=== PATIENT | male | born 1940 | race Caucasian/White ===

== ENCOUNTER 2017-02-11 13:33 | Emergency (ER) | payer BC ==
[~2017-02-11] VITALS: Ht 170.2 cm; Wt 112.0 kg
[2017-02-11] MEDS ORDERED: FISH100049 PO (13:50)
[2017-02-11] MEDS ORDERED: INVO100T PO (13:50)
[2017-02-11] MEDS ORDERED: CLAR1CHW PO (13:50)
[2017-02-11] MEDS ORDERED: ASPI325T PO (13:50)
[2017-02-11] MEDS ORDERED: DOXA1TAB72 PO (13:50)
[2017-02-11] MEDS ORDERED: OMEP40CA2 PO (13:50)
[2017-02-11] MEDS ORDERED: NITR0.4D TD (13:50)
[2017-02-11] MEDS ORDERED: PARO-39 PO (13:50)
[2017-02-11] MEDS ORDERED: METF500T PO (13:50)
[2017-02-11] MEDS ORDERED: METO12TA PO (13:50)
[2017-02-11] MEDS ORDERED: LISI10TA4 PO (13:50)
[2017-02-11] MEDS ORDERED: ATOR40TA PO (13:50)
[2017-02-11] MEDS ORDERED: POTA10TA8 PO (13:50)
[2017-02-11] MEDS ORDERED: ALLO15TA GT (13:50)
[2017-02-11] MEDS ORDERED: INSUDET SC (13:51)
[2017-02-11] MEDS ORDERED: INSUH10VL SC (13:51)
[2017-02-11] MEDS ORDERED: ONDANSETRON 4MG/2ML VIAL (J2405) IV ONE (14:15)
[2017-02-11] MEDS ORDERED: GI COCKTAIL 50ML BTL(HYOSCYAMINE/MAALOX/LIDOCAINE VISCOUS)(1:3:1) PO ONE (14:15)
[2017-02-11] MEDS ORDERED: NS 500 ML IV ONE (14:15)
[2017-02-11 14:23] LABS: BASO % 0.4 % (0.0-1.0); EOS # 0.3 K/mm3 (0.0-0.50); EOS % 3.8 % (0.0-3.0); LARGE UNSTAINED CELL # 0.1 K/mm3 (0.0-0.4); LARGE UNSTAINED CELL % 1.4 % (0.0-4.0); LYMPH # 1.4 K/mm3 (1.5-4.5); LYMPH % 14.9 % (24.0-44.0); MEAN CORPUSCULAR HGB CONC 34.7 g/dl (32.0-36.5); MEAN CORPUSCULAR VOLUME 89.3 fl (80.0-96.0); MONO # 0.5 K/mm3 (0.0-0.8); MONO % 5.6 % (0.0-5.0); NEUTROPHILS # 6.4 K/mm3 (1.8-7.7); PLATELET COUNT, AUTOMATED 119 k/mm3 (150-450); RED CELL DISTRIBUTION WIDTH 14.7 % (11.5-14.5); WHITE BLOOD COUNT 8.6 K/mm3 (4.0-10.0)
[2017-02-11 14:29] LABS: INR 1.06
[2017-02-11] MEDS ORDERED: MORPHINE 4 MG/ML 1ML SYRINGE IV ONE (14:30)
[2017-02-11 15:01] LABS: ALKALINE PHOSPHATASE 86 U/L (45-117); ALT/SGPT 50 U/L (12-78); ANION GAP 5 MEQ/L (8-16); AST/SGOT 29 U/L (15-37); BILIRUBIN,TOTAL 0.4 MG/DL (0.2-1.0); BLOOD UREA NITROGEN 31 MG/DL (7-18); CALCIUM LEVEL 9.5 MG/DL (8.8-10.2); CARBON DIOXIDE LEVEL 25 MEQ/L (21-32); CHLORIDE LEVEL 106 MEQ/L (98-107); GLOMERULAR FILTRATION RATE 57.4 (>42); GLUCOSE, FASTING 127 MG/DL (83-110); SODIUM LEVEL 136 MEQ/L (136-145)
[2017-02-11 15:02] LABS: ALBUMIN 3.7 GM/DL (3.2-5.2); ALBUMIN/GLOBULIN RATIO 0.97 (1.00-1.93); BILIRUBIN,DIRECT < 0.1 MG/DL (0.0-0.2); FREE T4 0.92 NG/DL (0.76-1.46); TOTAL PROTEIN 7.5 GM/DL (6.4-8.2)
[2017-02-11] MEDS: MORPHINE 2 MG/ML 1ML SYRINGE IV PRN ×3 (15:08→15:29)
[2017-02-11] MEDS ORDERED: HEPARIN DRIP 25,000 UNITS in APPROPRIATE DILUENT 1 EA IV STA (15:14)
[2017-02-11] MEDS ORDERED: HEPARIN SOD (PORCINE) 5000 UNITS/ML VIAL IV ONE (15:15)
[2017-02-11] MEDS ORDERED: HEPARIN 25,000 UNITS/250 ML D5W BAG (100 UNITS/ML) As Ordered ONE (15:22)
[2017-02-11] MEDS ORDERED: HEPARIN DRIP 25,000 UNITS in APPROPRIATE DILUENT 1 EA IV ONE (15:30)
[2017-02-11 16:07] VITALS: BP 160/72
--- NOTE | 2017-02-11 16:36 | REP ---
PORTABLE CHEST, SINGLE VIEW: There is no evidence of acute infiltrate. No pleural effusion is seen. The heart is normal in size. The mediastinal silhouette is unremarkable. The visualized osseous structures are intact. IMPRESSION: No acute pulmonary disease. Signed by Mayank Capps MD 02/12/2017 07:40 P
--- NOTE | 2017-02-12 16:10 | ECGEPIP ---
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
--- NOTE | 2017-02-12 16:16 | ECGEPIP ---
Stationary ECG Study [facility] - ED Test Date: 2017-02-11 Pat Name: HARDY WILLIAMSON Department: Room: - Gender: M Vb Developer: patricia : 1940 Requested By: Sherley Davis Order Number: [id number] Reading MD: Patricia Long Measurements Intervals [place] Rate: 60 P: 48 ND: 217 QRS: 24 QRSD: 117 T: 31 QT: 412 QTc: 412 Interpretive Statements SINUS RHYTHM WITH FIRST DEGREE AV BLOCK MODERATE INTRAVENTRICULAR CONDUCTION DELAY NONSPECIFIC T-WAVE ABNORMALITY SIMILAR 02/11/17 15:01 Electronically Signed On 02-12-2017 16:15:59 EDT by Patricia Long
== END 2017-02-11 16:10 | disposition short-term general hospital (02) ==
LOC: M ED 14:14
DX: R07.9 Chest pain, unspecified (principal); I11.0 Hypertensive heart disease with heart failure; I25.10 Atherosclerotic heart disease of native coronary artery without angina pectoris; E11.9 Type 2 diabetes mellitus without complications; E78.5 Hyperlipidemia, unspecified; F41.9 Anxiety disorder, unspecified; Z95.5 Presence of coronary angioplasty implant and graft; Z79.4 Long term (current) use of insulin; Z79.899 Other long term (current) drug therapy; Z91.041 Radiographic dye allergy status; Z79.82 Long term (current) use of aspirin
CPT/HCPCS: 71010; 80048; 80076; 82550; 82553; 83690; 84439; 84443; 85025; 85610; 85730; 93005; 93041; 94760; 96374; 96375; 96376; 99285; J2405

== ENCOUNTER 2018-03-21 18:57 | Inpatient (IN) | payer BC, MEDICARE ==
[2018-03-21 19:25] LABS: BASO % 0.3 % (0.0-1.0); EOS # 0.3 10^3/uL (0.0-0.50); EOS % 4.4 % (0.0-3.0); HEMATOCRIT 40.7 % (42.0-52.0); IMMATURE GRANULOCYTE % 0.9 % (0-3.0); LYMPH # 1.4 10^3/uL (1.5-4.5); MEAN CORPUSCULAR HEMOGLOBIN 30.5 pg (27.0-33.0); MEAN CORPUSCULAR HGB CONC 34.4 g/dl (32.0-36.5); MEAN CORPUSCULAR VOLUME 88.7 fl (80.0-96.0); MONO # 0.7 10^3/uL (0.0-0.8); MONO % 10.4 % (0.0-5.0); NEUTROPHILS # 4.5 10^3/uL (1.8-7.7); PLATELET COUNT, AUTOMATED 114 10^3/uL (150-450); RED BLOOD COUNT 4.59 10^6/uL (4.30-6.10); RED CELL DISTRIBUTION WIDTH 14.4 % (11.5-14.5)
[2018-03-21 19:33] LABS: INR 1.07
[2018-03-21] MEDS: METOCLOPRAMIDE INJ 10MG/2ML VIAL (J2765) IV (19:34)
[2018-03-21] MEDS: NS 1,000 ML IV (19:34)
[2018-03-21 19:44] LABS: ALBUMIN 3.3 GM/DL (3.2-5.2); ALBUMIN/GLOBULIN RATIO 0.87 (1.00-1.93); ALKALINE PHOSPHATASE 77 U/L (45-117); ALT/SGPT 51 U/L (12-78); ANION GAP 9 MEQ/L (8-16); AST/SGOT 32 U/L (7-37); BILIRUBIN,DIRECT 0.1 MG/DL (0.0-0.2); BILIRUBIN,TOTAL 0.4 MG/DL (0.2-1.0); BLOOD UREA NITROGEN 30 MG/DL (7-18); CALCIUM LEVEL 8.7 MG/DL (8.8-10.2); CARBON DIOXIDE LEVEL 24 MEQ/L (21-32); CHLORIDE LEVEL 110 MEQ/L (98-107); CPK CREATINE PHOSPHOKINASE 190 U/L (39-308); CREATININE FOR GFR 1.44 MG/DL (0.70-1.30); GLOMERULAR FILTRATION RATE 50.9 (>42); GLUCOSE, FASTING 184 MG/DL (70-100); POTASSIUM SERUM 4.7 MEQ/L (3.5-5.1); SODIUM LEVEL 143 MEQ/L (136-145); TOTAL PROTEIN 7.1 GM/DL (6.4-8.2); TROPONIN I < 0.02 NG/ML (< 0.10)
[2018-03-21 19:45] LABS: ETHYL ALCOHOL (ETHANOL) < 0.003 % (0.000-0.010); MB/CK RELATIVE INDEX 2.63 (< OR =4)
[2018-03-21] MEDS: LORazepam 2 MG/ML VIAL (J2060) IV (20:48)
[2018-03-21 20:52] LABS: AMPHETAMINES LEVEL URINE NEGATIVE (NEGATIVE); BARBITURATES URINE NEGATIVE (NEGATIVE); BENZODIAZEPINES URINE NEGATIVE (NEGATIVE); CANNABINOIDS URINE NEGATIVE (NEGATIVE); COCAINE METABOLITE URINE NEGATIVE (NEGATIVE); METHADONE URINE NEGATIVE (NEGATIVE); OPIATES URINE NEGATIVE (NEGATIVE); PHENCYCLIDINE URINE NEGATIVE (NEGATIVE)
[2018-03-21] MEDS: HumaLOG INSULIN (NovoLOG) PER UNIT SC (21:00)
[2018-03-21] MEDS: CLOPIDOGREL 75 MG TAB PO (21:15)
[2018-03-21] MEDS ORDERED: ACETAMINOPHEN TAB 650MG DOSE (2X325MG) PO (21:45)
[2018-03-21] MEDS ORDERED: DEXTROSE 50% 50 ML SYRINGE IV (22:00)
[2018-03-21] MEDS ORDERED: GLUCAGON FOR INJ 1 MG VIAL (J1610) SC (22:00)
[2018-03-21] MEDS ORDERED: GLUCOSE 4 GM CHEW TABLET PO (22:00)
[2018-03-22] MEDS: LEVEMIR (INSULIN DETEMIR) 1 UNITS/0.01ML SC ×3 (00:12→21:00)
[2018-03-22 00:16] LABS: BEDSIDE GLUCOSE 142 MG/DL (83-110)
[2018-03-22] MEDS: METOPROLOL TART 25 MG TABLET PO ×3 (00:59→21:26)
[2018-03-22] MEDS: OMEPRAZOLE 20 MG CAP PO ×3 (00:59→21:27)
[2018-03-22] MEDS: HEPARIN SOD (PORCINE) 5000 UNITS/ML VIAL SC ×4 (01:00→21:26)
[2018-03-22] MEDS: NS 1,000 ML IV (01:00)
[2018-03-22 05:47] LABS: ANION GAP 7 MEQ/L (8-16); BLOOD UREA NITROGEN 25 MG/DL (7-18); CALCIUM LEVEL 8.7 MG/DL (8.8-10.2); CARBON DIOXIDE LEVEL 26 MEQ/L (21-32); CHLORIDE LEVEL 111 MEQ/L (98-107); CREATININE FOR GFR 1.27 MG/DL (0.70-1.30); GLOMERULAR FILTRATION RATE 58.9 (>42); GLUCOSE, FASTING 199 MG/DL (70-100); POTASSIUM SERUM 4.5 MEQ/L (3.5-5.1); SODIUM LEVEL 144 MEQ/L (136-145)
[2018-03-22] MEDS: ATORVASTATIN 20 MG TAB PO (08:45)
[2018-03-22] MEDS: HumaLOG INSULIN (NovoLOG) PER UNIT SC ×4 (08:45→21:00)
[2018-03-22] MEDS: DOXAZOSIN MESYLATE 4 MG TAB PO (08:46)
[2018-03-22] MEDS: PARoxetine 10MG TABLET PO (08:46)
[2018-03-22] MEDS: LISINOPRIL 10 MG TAB PO (08:46)
[2018-03-22] MEDS: CLOPIDOGREL 75 MG TAB PO (08:47)
[2018-03-22] MEDS: ALLOPURINOL 300 MG TAB PO (08:47)
[2018-03-22] MEDS: PREVNAR 13 VACCINE SYRINGE (CPT CODE:90670) IM (08:48)
[2018-03-22] MEDS ORDERED: LATANOPROST 0.005% OPHTH SOLN 2.5 ML OU (09:00)
[2018-03-22] MEDS ORDERED: ASPIRIN 325 MG TAB PO (09:00)
[2018-03-22 11:34] LABS: BEDSIDE GLUCOSE 260 MG/DL (83-110)
[2018-03-22 17:10] LABS: BEDSIDE GLUCOSE 197 MG/DL (83-110)
[2018-03-22 20:49] LABS: BEDSIDE GLUCOSE 270 MG/DL (83-110)
[2018-03-22] MEDS: LATANOPROST 0.005% OPHTH SOLN 2.5 ML OU (21:32)
[2018-03-23 05:25] LABS: HEMATOCRIT 40.1 % (42.0-52.0); HEMOGLOBIN 13.6 g/dl (13.5-17.5); MEAN CORPUSCULAR HEMOGLOBIN 29.7 pg (27.0-33.0); MEAN CORPUSCULAR HGB CONC 33.9 g/dl (32.0-36.5); MEAN CORPUSCULAR VOLUME 87.6 fl (80.0-96.0); PLATELET COUNT, AUTOMATED 102 10^3/uL (150-450); RED BLOOD COUNT 4.58 10^6/uL (4.30-6.10); RED CELL DISTRIBUTION WIDTH 14.4 % (11.5-14.5); WHITE BLOOD COUNT 6.9 10^3/uL (4.0-10.0)
[2018-03-23 05:41] LABS: ANION GAP 6 MEQ/L (8-16); BLOOD UREA NITROGEN 22 MG/DL (7-18); CALCIUM LEVEL 8.8 MG/DL (8.8-10.2); CARBON DIOXIDE LEVEL 28 MEQ/L (21-32); CHLORIDE LEVEL 109 MEQ/L (98-107); GLOMERULAR FILTRATION RATE > 60.0 (>42); GLUCOSE, FASTING 186 MG/DL (70-100); MAGNESIUM LEVEL 1.2 MG/DL (1.8-2.4); POTASSIUM SERUM 4.3 MEQ/L (3.5-5.1); SODIUM LEVEL 143 MEQ/L (136-145)
[2018-03-23] MEDS: HEPARIN SOD (PORCINE) 5000 UNITS/ML VIAL SC (05:49)
[2018-03-23] MEDS: LEVEMIR (INSULIN DETEMIR) 1 UNITS/0.01ML SC (09:42)
[2018-03-23] MEDS: HumaLOG INSULIN (NovoLOG) PER UNIT SC ×2 (09:42→12:05)
[2018-03-23] MEDS: ATORVASTATIN 20 MG TAB PO (09:43)
[2018-03-23] MEDS: OMEPRAZOLE 20 MG CAP PO (09:44)
[2018-03-23] MEDS: METOPROLOL TART 25 MG TABLET PO (09:44)
[2018-03-23] MEDS: LISINOPRIL 10 MG TAB PO (09:45)
[2018-03-23] MEDS: CLOPIDOGREL 75 MG TAB PO (09:45)
[2018-03-23] MEDS: DOXAZOSIN MESYLATE 4 MG TAB PO (09:46)
[2018-03-23] MEDS: PARoxetine 10MG TABLET PO (09:47)
[2018-03-23] MEDS: ALLOPURINOL 300 MG TAB PO (09:47)
[2018-03-23] MEDS: SLF 3 ML SYR IV (11:32)
[2018-03-23] MEDS: MAG SULF 1GM/100ML (MAG RUN) 1 GM in APPROPRIATE DILUENT 1 EA IV ×2 (11:32→12:48)
[2018-03-23 11:46] LABS: BEDSIDE GLUCOSE 241 MG/DL (83-110)
[2018-03-23] MEDS ORDERED: SLF 3 ML SYR IV (14:00)
== END 2018-03-23 14:40 | disposition home or self-care (01) | DRG 47 ==
LOC: M PCU 03-22 00:30 → M ED 18:57 → M ED INP 21:35
DX: G45.9 Transient cerebral ischemic attack, unspecified (principal); E11.22 Type 2 diabetes mellitus with diabetic chronic kidney disease; N18.3 Chronic kidney disease, stage 3 (moderate); R47.01 Aphasia; R20.0 Anesthesia of skin; I12.9 Hypertensive chronic kidney disease with stage 1 through stage 4 chronic kidney disease, or unspecified chronic kidney disease; E78.5 Hyperlipidemia, unspecified; I25.10 Atherosclerotic heart disease of native coronary artery without angina pectoris; G47.30 Sleep apnea, unspecified; F32.9 Major depressive disorder, single episode, unspecified; K21.9 Gastro-esophageal reflux disease without esophagitis; Z95.1 Presence of aortocoronary bypass graft; Z87.891 Personal history of nicotine dependence; Z79.82 Long term (current) use of aspirin; Z79.4 Long term (current) use of insulin; Z79.899 Other long term (current) drug therapy; Z91.041 Radiographic dye allergy status

== ENCOUNTER 2018-04-09 11:02 | Day surgery (SDC) | payer BC, MEDICARE ==
[~2018-04-09 11:02] MED LIST: LIDOCAINE 1% SDV INJ 30 ML VIAL As Ordered; LR 1,000 ML IV
[2018-04-09 12:33] LABS: BEDSIDE GLUCOSE 158 MG/DL (83-110)
[2018-04-09] MEDS: LIDOCAINE VISCOUS 2% SOLN 15ML UDC As Ordered (14:12)
[2018-04-09] MEDS ORDERED: PROPOFOL 200 MG/20 ML VIAL As Ordered (14:21)
[2018-04-09] MEDS ORDERED: MIDAZOLAM INJ 2 MG/2 ML VIAL (J2250) As Ordered (14:21)
[2018-04-09] MEDS ORDERED: fentaNYL 100 MCG/2 ML INJECTION (J3010) As Ordered (14:21)
== END 2018-04-09 16:11 | disposition home or self-care (01) ==
LOC: M SDC 11:02
DX: I63.9 Cerebral infarction, unspecified (principal); I25.10 Atherosclerotic heart disease of native coronary artery without angina pectoris; I25.2 Old myocardial infarction; I10 Essential (primary) hypertension; Z95.1 Presence of aortocoronary bypass graft; E78.00 Pure hypercholesterolemia, unspecified; E78.4 Other hyperlipidemia; G47.30 Sleep apnea, unspecified; Z87.891 Personal history of nicotine dependence; E11.9 Type 2 diabetes mellitus without complications; Z79.4 Long term (current) use of insulin; Z79.899 Other long term (current) drug therapy
CPT/HCPCS: 33282

== ENCOUNTER 2019-11-22 06:23 | Emergency (ER) | payer BC ==
[~2019-11-22] VITALS: Ht 172.7 cm; Wt 113.6 kg
[~2019-11-22 06:23] MED LIST changes: +ALLO300T2 GT; +ASPI-1 PO; +ATOR40TA75 PO; +CLAR1CHW2 PO; +CLOP75TA2 PO; +CYAN500T8 PO; +DOXA1TAB67 PO; +FISH100049 PO; +INSUDET SC; +INSUH10VL SC; +INSUHUMDS SC; +INVO100T PO; +LATA0.0013 OU; -LIDOCAINE 1% SDV INJ 30 ML VIAL As Ordered; +LISI10TA4 PO; -LR 1,000 ML IV; +MAGN400T2 PO; +MAGN64TASA PO; +METF500T13 PO; +METO1TAB87 PO; +NITR0.4D10 TD; +OMEP-358 PO; +OMEP40CA97 PO; +PARO10TA3 PO; +PARO20TA4 PO; +POTA10TA14 PO; +ZYLO300T6 PO
[2019-11-22] MEDS ORDERED: COMBIVENT RESPIMAT 100-20MCG INHALER 4GM INH ONE (07:00)
[2019-11-22] MEDS ORDERED: ANEC4CRE3 TOP (07:01)
[2019-11-22] MEDS ORDERED: MOXI1TAB PO (07:01)
[2019-11-22] MEDS ORDERED: PROAAER10 INH (07:01)
[2019-11-22] MEDS ORDERED: INVO100T PO (07:01)
[2019-11-22] MEDS ORDERED: CLAR5TAB PO (07:01)
[2019-11-22] MEDS ORDERED: CARB25TA18 PO (07:01)
[2019-11-22 07:21] LABS: EOS % 0.4 % (0.0-3.0); HEMATOCRIT 40.4 % (42.0-52.0); HEMOGLOBIN 13.2 g/dl (13.5-17.5); LYMPH # 0.6 10^3/uL (1.5-5.0); LYMPH % 9.3 % (24.0-44.0); MEAN CORPUSCULAR HEMOGLOBIN 28.8 pg (27.0-33.0); MEAN CORPUSCULAR HGB CONC 32.7 g/dl (32.0-36.5); MONO # 0.5 10^3/uL (0.0-0.8); MONO % 7.2 % (0.0-5.0); NEUTROPHILS # 5.6 10^3/uL (1.5-8.5); NEUTROPHILS % 82.7 % (36.0-66.0); PLATELET COUNT, AUTOMATED 106 10^3/uL (150-450); RED BLOOD COUNT 4.59 10^6/uL (4.30-6.10); WHITE BLOOD COUNT 6.8 10^3/uL (4.0-10.0)
[2019-11-22 07:30] LABS: INR 1.24; PROTHROMBIN TIME 15.3 SECONDS (11.8-14.0)
--- NOTE | 2019-11-22 07:41 | REPVR ---
PROCEDURE INFORMATION: Exam: US Duplex Lower Extremity Veins Exam date and time: 11/22/2019 7:32 AM Age: 79 years old Clinical indication: Pain; Leg, lower; Bilateral; Additional info: Bilat leg pain R/O dvt TECHNIQUE: Imaging protocol: Real-time duplex ultrasound of the Lower Extremities with 2-D canales scale, color Doppler flow and spectral waveform analysis with image documentation. Complete exam focused on the bilateral lower extremity veins. COMPARISON: No relevant prior studies available. FINDINGS: Right deep veins: Unremarkable. The common femoral, femoral, proximal profunda femoral and popliteal veins are patent without thrombus. Normal Doppler waveforms. Normal compressibility and/or augmentation response. Right superficial veins: Saphenofemoral junction is patent without thrombus. Left deep veins: Unremarkable. The common femoral, femoral, proximal profunda femoral and popliteal veins are patent without thrombus. Normal Doppler waveforms. Normal compressibility and/or augmentation response. Left superficial veins: Saphenofemoral junction is patent without thrombus. Soft tissues: Unremarkable. IMPRESSION: No acute findings. No evidence of deep vein thrombosis. Electronically signed by: Nando Moncada On 11/22/2019 07:40:45 AM
[2019-11-22 07:50] LABS: ALBUMIN 2.9 GM/DL (3.2-5.2); BILIRUBIN,DIRECT 0.2 MG/DL (0.0-0.2); BILIRUBIN,TOTAL 0.7 MG/DL (0.2-1.0); CALCIUM LEVEL 8.6 MG/DL (8.8-10.2); CK-MB VALUE MASS 1.6 NG/ML (<3.6); CREATININE FOR GFR 1.32 MG/DL (0.70-1.30); FREE T4 1.17 NG/DL (0.76-1.46); MB/CK RELATIVE INDEX 1.17 (< OR =4); POTASSIUM SERUM 4.6 MEQ/L (3.5-5.1); THYROID STIMULATING HORMONE 1.03 uIU/ML (0.358-3.740); TOTAL PROTEIN 6.6 GM/DL (6.4-8.2); TROPONIN I 0.03 NG/ML (< 0.10)
--- NOTE | 2019-11-22 08:14 | REP ---
Clinical: Chest pain . Comparison: 03/21/2018 . Findings: The mediastinum and cardiac silhouette are stable. Mild cardiomegaly, prior sternotomy/CABG and loop recorder noted. The lung rivera are clear without acute consolidation, effusion, or pneumothorax. Skeletal structures are intact. Impression: No acute cardiopulmonary process appreciated. Electronically Signed by Adama Koo MD 11/22/2019 08:06 A
[2019-11-22] MEDS ORDERED: ACETAMINOPHEN TAB 650MG DOSE (2X325MG) PO ONE (08:45)
--- NOTE | 2019-11-22 10:56 | REP ---
Clinical: Shortness of breath. Technique: Axial noncontrast images from the thoracic inlet to the upper abdomen with coronal and sagittal re-formations. Findings: Chronic age-related interstitial changes are appreciated. Extremely subtle areas of ground-glass opacity primarily noted in the left upper lobe/lingula right middle lobe mass and right lower lobe are nonspecific but may represent early bronchitis/pneumonia. No focal consolidation. No effusion. No pneumothorax. There is no significant adenopathy. Atherosclerotic changes to the thoracic aorta and coronary arteries noted without aortic aneurysm or cardiomegaly. No pericardial effusion. Surrounding musculoskeletal structures are intact. Limited upper abdomen demonstrates normal bilateral adrenal glands and right renal cyst. Impression: 1. Chronic-appearing interstitial changes and mild bronchiectasis. 2. Very subtle scattered early ground-glass opacities may represent bronchitis/early pneumonia. Electronically Signed by Adama Koo MD 11/22/2019 10:48 A
[2019-11-22] MEDS ORDERED: DOXYCYCLINE HYCLATE 100 MG TAB PO ONE (11:00)
[2019-11-22] MEDS ORDERED: DOXY100C37 PO (11:09)
[2019-11-22 11:42] VITALS: BP 142/67
--- NOTE | 2019-11-23 05:33 | ECGEPIP ---
[facility] - ED Test Date: 2019-11-22 Pat Name: HARDY WILLIAMSON Department: Room: - Gender: Male Director Business: geraldo : 1940 Requested By: NAHUN Contreras Order Number: [id number] Reading MD: Sean Basilio Measurements Intervals [place] Rate: 69 P: -13 IL: 194 QRS: 57 QRSD: 138 T: -14 QT: 452 QTc: 486 Interpretive Statements SINUS RHYTHM RIGHT BUNDLE BRANCH BLOCK SIMILAR TO 03/21/18 Electronically Signed on 11-23-2019 5:32:53 EDT by Sean Basilio
== END 2019-11-22 12:45 | disposition home or self-care (01) ==
LOC: M ED 06:23
DX: J18.9 Pneumonia, unspecified organism (principal); R50.9 Fever, unspecified; M79.606 Pain in leg, unspecified; E11.22 Type 2 diabetes mellitus with diabetic chronic kidney disease; I13.10 Hypertensive heart and chronic kidney disease without heart failure, with stage 1 through stage 4 chronic kidney disease, or unspecified chronic kidney disease; I25.10 Atherosclerotic heart disease of native coronary artery without angina pectoris; K21.9 Gastro-esophageal reflux disease without esophagitis; E78.5 Hyperlipidemia, unspecified; N18.9 Chronic kidney disease, unspecified; M54.9 Dorsalgia, unspecified; Z95.1 Presence of aortocoronary bypass graft; Z87.891 Personal history of nicotine dependence; Z91.041 Radiographic dye allergy status; Z79.899 Other long term (current) drug therapy; Z79.2 Long term (current) use of antibiotics; Z79.02 Long term (current) use of antithrombotics/antiplatelets; Z79.4 Long term (current) use of insulin
CPT/HCPCS: 71045; 71250; 80048; 80076; 81001; 82550; 82553; 83880; 84439; 84443; 84484; 85025; 85610; 85730; 87040; 87086; 87486; 87581; 87633; 87798; 93005; 93041; 93970; 94640; 94760; 99285; U0002

== ENCOUNTER 2021-02-13 02:10 | Observation (INO) | payer BC ==
[~2021-02-13] VITALS: Ht 172.7 cm; Wt 114.7 kg
[~2021-02-13 02:10] MED LIST changes: +ANEC4CRE3 TOP; +CARB25TA18 PO; +CLAR5TAB PO; +CYAN500T14 PO; -CYAN500T8 PO; +DOXY1CAP62 PO; +LISI10TA22 PO; -LISI10TA4 PO; +MOXI1TAB PO; +OMEP40CA4 PO; -OMEP40CA97 PO; +PROAAER10 INH
[2021-02-13] MEDS ORDERED: METAL LOCK LOOP XX ONE (03:28)
[2021-02-13 03:31] LABS: HEMATOCRIT 39.2 % (42.0-52.0); MEAN CORPUSCULAR HEMOGLOBIN 29.5 pg (27.0-33.0); MEAN CORPUSCULAR HGB CONC 33.2 g/dl (32.0-36.5); MEAN CORPUSCULAR VOLUME 89.1 fl (80.0-96.0); WHITE BLOOD COUNT 8.4 10^3/uL (4.0-10.0)
[2021-02-13 03:41] LABS: BLOOD UREA NITROGEN 25 MG/DL (7-18); CALCIUM LEVEL 8.6 MG/DL (8.8-10.2); CARBON DIOXIDE LEVEL 23 MEQ/L (21-32); CHLORIDE LEVEL 109 MEQ/L (98-107); CK-MB VALUE MASS 3.1 NG/ML (<3.6); CPK CREATINE PHOSPHOKINASE 131 U/L (39-308); CREATININE FOR GFR 1.23 MG/DL (0.70-1.30); GLOMERULAR FILTRATION RATE > 60.0 (>42); GLUCOSE, FASTING 196 MG/DL (70-100); MB/CK RELATIVE INDEX 2.37 (< OR =4); NT-PRO BNP 906 PG/ML (<450); POTASSIUM SERUM 4.6 MEQ/L (3.5-5.1); SODIUM LEVEL 139 MEQ/L (136-145); TROPONIN I 0.02 NG/ML (< 0.10)
[2021-02-13 03:59] LABS: PLATELET COUNT, AUTOMATED 86 10^3/uL (150-450)
[2021-02-13 04:06] LABS: EOSINOPHILS 2 % (0-3); LYMPHOCYTES 6 % (16-44); MONOCYTES 6 % (0-5); NEUTROPHILS 86 % (28-66); PLATELET ESTIMATE DECREASED (NORMAL)
--- NOTE | 2021-02-13 05:38 | REPVR ---
PROCEDURE INFORMATION: Exam: XR Chest Exam date and time: 02/13/2021 3:49 AM Age: 80 years old Clinical indication: Shortness of breath; Additional info: SOB TECHNIQUE: Imaging protocol: XR of the chest. Views: 1 view. COMPARISON: CT Chest without contrast 11/22/2019 10:34 AM FINDINGS: Tubes, catheters and devices: The patient is status post sternotomy with grossly intact sternal wires. Cardiac loop recorder seen overlying the left mid chest. Lungs: Unremarkable. No consolidation. Pleural spaces: Unremarkable. No pleural effusion. No pneumothorax. Heart/Mediastinum: Mediastinal surgical clip seen. Bones/joints: Mild right shoulder DJD seen. IMPRESSION: No focal consolidation. Electronically signed by: Nando Moncada On 02/13/2021 05:37:57 AM
[2021-02-13 05:49] VITALS: O2SAT 86
[2021-02-13] MEDS ORDERED: NITR4TASL SL (06:35)
[2021-02-13] MEDS ORDERED: BRIM2OPD OU (06:35)
[2021-02-13] MEDS ORDERED: PRIM50TA6 PO (06:35)
[2021-02-13] MEDS ORDERED: CLOP75TA2 PO (06:35)
[2021-02-13] MEDS ORDERED: ASPI-161 PO (06:35)
[2021-02-13] MEDS ORDERED: B-12100021 PO (06:35)
[2021-02-13] MEDS ORDERED: DESL1TAB3 PO (06:35)
[2021-02-13] MEDS ORDERED: METF-723 PO (06:35)
[2021-02-13] MEDS ORDERED: PROAAER10 INH (06:35)
[2021-02-13] MEDS ORDERED: TREL1AER INH (06:35)
[2021-02-13] MEDS ORDERED: GABA-282 PO (06:35)
[2021-02-13] MEDS ORDERED: CARB25TA9 PO (06:35)
[2021-02-13] MEDS: HumaLOG INSULIN (NovoLOG) PER UNIT SC SCH ×4 (07:30→17:53)
[2021-02-13 07:53] LABS: APPEARANCE, URINE CLEAR (CLEAR); BACTERIA, URINE AUTO NEGATIVE (NEGATIVE); BILIRUBIN, URINE AUTO NEGATIVE (NEGATIVE); BLOOD, URINE BLOOD NEGATIVE (NEGATIVE); COLOR, URINE YELLOW (YELLOW); GLUCOSE, URINE (UA) AUTO 2+ mg/dL (NEGATIVE); KETONE, URINE AUTO NEGATIVE (NEGATIVE); LEUKOCYTE ESTERASE, URINE AUTO NEGATIVE (NEGATIVE); MUCUS, URINE SMALL (NEGATIVE); NITRITE, URINE AUTO NEGATIVE (NEGATIVE); PROTEIN, URINE AUTO 2+ mg/dL (NEGATIVE); RBC, URINE AUTO 2 /HPF (0-3); SPECIFIC GRAVITY URINE AUTO 1.019 (1.002-1.035); SQUAMOUS EPITHELIAL CELL UR AU 0 /HPF (0-6); UROBILINOGEN, URINE AUTO 0.2 mg/dL (0.0-2.0); WBC, URINE AUTO 1 /HPF (0-3)
[2021-02-13] MEDS ORDERED: GLUCAGON INJ 1MG VIAL SC PRN (08:05)
[2021-02-13] MEDS ORDERED: MOM 30ML SUSPENSION UDC PO PRN (08:05)
[2021-02-13] MEDS ORDERED: DEXTROSE 50% 50 ML SYRINGE IV PRN (08:05)
[2021-02-13] MEDS ORDERED: GLUCOSE 4GM CHEW TABLET PO PRN (08:05)
[2021-02-13] MEDS ORDERED: MAALOX 30 ML SUSP *UDC PO PRN (08:05)
[2021-02-13] MEDS: DOCUSATE SODIUM 100MG CAPSULE PO SCH ×2 (09:16→21:28)
[2021-02-13] MEDS: HEPARIN SOD (PORCINE) 5000UNITS/ML 1ML VIAL/SYRINGE SC SCH ×2 (09:34→21:00)
[2021-02-13 11:05] VITALS: BP 177/72
[2021-02-13 14:00] VITALS: BP 148/60
--- NOTE | 2021-02-13 14:22 | HPEPDOC ---
[facility] Medical History & Physical Date of Admission Feb 13, 2021 Date of Service: Feb 13, 2021 History and Physical CHIEF COMPLAINT: SOB HISTORY OF PRESENT ILLNESS: 80-year-old male history of diabetes, hypertension, CAD status post CABG, CKD who presents to the hospital because of a 2 day history of worsening shortness of breath at home. Patient tells me he's been feeling progressively weaker and short of breath which prompted him to the hospital. He denies any chest pain. Endorses occasional fevers and chills at home. In the emergency department viral panel reveals patient has parainfluenza. Patient endorses congestion and lots of sputum which she's having difficulty bringing up. He is placed on supplemental oxygen and feels a lot better. Less weak and less short of breath at the time he was seen. On review of systems patient endorses he's noticed some increased lower extremity swelling lately he tells me his primary care physician has continued his diuresis because he was dehydrated but it appears that over the past several weeks has been slowly reaccumulating fluid. He has a known history of congestive heart failure. 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 REVIEW OF SYSTEMS: 10 point review of systems complete all negative otherwise stated in HPI HOME MEDICATIONS: Please see below. PHYSICAL EXAMINATION: Constitutional: Awake and alert, in no apparent distress, obese ENT: Sclera are clear. Mucosa is moist. Respiratory: Lungs CTA bilaterally with some mild bibasilar crackles. No respiratory distress. on 1L supplemental oxygen saturating at 93% Cardiovascular: RRR S1 and S2 are normal, no murmur Gastrointestinal: Abdomen is soft, non distended, non tender, BS present. Musculoskeletal: 2+ LE edema below the knees Neurologic: No focal neurological deficit. Mental Status: A&O x3, normal affect LABORATORY DATA: See below. IMAGING: See chart MICROBIOLOGY: Please see below. ASSESSMENT/PLAN 80-year-old male history of diabetes, hypertension, CAD status post CABG, CKD presents with SOB found to have hypoxia and to have Parainfluenza as well as being fluid overloaded. Admitted for further medical workup and management. # Parainfluenza infection: This likely explains his presenting symptoms of shortness of breath, hypoxia, fever. No suspicion of superimposed bacterial infection at this time. No leukocytosis. Guaifenesin scheduled. Supportive management. Tylenol PRN for fevers. Might need oxygen at home if continued to be hypoxic. # Acute on chronic CHFpEF exacerbation: His diuresis was stopped recently due to dehydration. Currently fluid overloaded on exam. Could be contributing to his shortness of breath and hypoxia. Diuresis with Lasix IV. Will be restarted on oral Lasix at discharge. No crackles on exam. EF 60% on echo 2018. Should get a repeat echo done with PCP. # Lactic acidosis: Increased likely from hypoxia. # CAD status post CABG: Continue home medications. Continue metoprolol. Continue aspirin, Plavix and statin # Anxiety/depression: Continue home medications # GERD: Continue omeprazole # CKD: Cracking around baseline. Monitor. # Hypertension: Continue home meds. Monitor and titrate # IDDM: Hold metformin. ISS. Frequent Accu-Cheks. Hypoglycemic precautions. Levemir twice a day # DVT prophylaxis: Heparin A Yousef Hospitalist Vital Signs Vital Signs Date Time Temp Pulse Resp B/P (MAP) Pulse Ox O2 Delivery O2 Flow Rate FiO2 02/13/21 14:00 98.2 80 20 148/60 (89) 94 Nasal Cannula 1.0 Laboratory Data Labs 24H Laboratory Tests 2 02/13/21 02:43: Neutrophils (%) (Auto) , Nucleated Red Blood Cells % (auto) 0.0, Neutrophils 86H, Lymphocytes (Manual) 6L, Monocytes (Manual) 6H, Eosinophils (Manual) 2, Platelet Estimate DECREASED, Immature Platelet Fraction 5.2, Anion Gap 7L, Glomerular Filtration Rate > 60.0, Calcium Level 8.6L, Total Creatine Kinase 131, Creatine Kinase MB 3.1, Creatine Kinase MB Relative Index 2.37, Troponin I 0.02, AD-Vsq-W-Type Natriuretic Peptide 906H 02/13/21 04:38: POC pH (Misc Panel) 7.428, POC Base Excess (Misc Panel) -3.0L, POC Saturated Percent O2 (Misc) 93L, POC pO2 (Misc Panel) 65.0L, POC pCO2 (Misc Panel) 32.3L, POC HCO3 (Misc Panel) 21.4L, POC Total CO2 (Misc Panel) 22.0L 02/13/21 07:40: Urine Color YELLOW, Urine Appearance CLEAR, Urine pH 5.0, Urine Specific [place] 1.019, Urine Protein 2+H, Urine Glucose (Auto)(UA) 2+H, Urine Ketones (Auto) NEGATIVE, Urine Blood NEGATIVE, Urine Nitrite NEGATIVE, Urine Bilirubin NEGATIVE, Urine Urobilinogen 0.2, Urine Leukocyte Esterase (Auto) NEGATIVE, Urine WBC (Auto) 1, Urine RBC (Auto) 2, Urine Hyaline Casts (Auto) 0, Urine Bacteria (Auto) NEGATIVE, Urine Squamous Epithelial Cells 0, Urine Mucus (Auto) SMALL, Urine Sperm (Auto) 02/13/21 08:18: Lactic Acid Level 2.3*H 02/13/21 09:08: Bedside Glucose (Misc Panel) 277H 02/13/21 13:24: CBC/BMP Laboratory Tests 02/13/21 02:43 Microbiology Microbiology 02/13/21 Respiratory Virus Panel (PCR) (MCKENZIE) - Final, Complete Parainfluenza 3 (Piv3) Home Medications Scheduled Allopurinol (Zyloprim) 300 Mg Tab, 300 MG PO DAILY Aspirin (Aspirin EC) 81 Mg Tablet.dr, 81 MG PO QPM TAKES AT DINNER Atorvastatin Calcium (Atorvastatin Calcium) 40 Mg Tab, 40 MG PO QHS Brimonidine Tartrate (Brimonidine Tartrate) 0.15% 5ML Drops, 1 DROP OU BID Carbidopa/Levodopa (Carbidopa-Levodopa 25-100 Tab) 1 Each Tablet, 1 TAB PO BID 0900, 1700 Clopidogrel Bisulfate (Clopidogrel) 75 Mg Tablet, 75 MG PO QHS Cyanocobalamin (Vitamin B-12) (B-12) 1,000 Mcg Tablet, 1,000 MCG PO DAILY Desloratadine (Desloratadine) 5 Mg Tablet, 5 MG PO DAILY Doxazosin Mesylate (Doxazosin) 4 Mg Tab, 4 MG PO QPM TAKES AT DINNER Fluticasone/Umeclidin/Vilanter (Trelegy Ellipta 100-62.5-25) 1 Each Blst.w.dev, 1 PUFF INH DAILY Gabapentin (Gabapentin) 300 Mg Capsule, 300 MG PO BID Insulin Detemir (Levemir) 1 Units/0.01 Ml Susp, 63 UNITS SC DAILY Insulin Detemir (Levemir) 1 Units/0.01 Ml Susp, 73 UNITS SC QHS Insulin Human Lispro (Humalog) 1 Units/0.01 Ml Inj, 1 DOSE SC AC PER SLIDING SCALE Lisinopril (Lisinopril) 10 Mg Tab, 10 MG PO QPM TAKES AT DINNER Metformin HCl (Metformin HCl ER) 500 Mg Tab.er.24h, 500 MG PO BID Metoprolol Tartrate (Metoprolol Tartrate) 25 Mg Tab, 25 MG PO BID Omeprazole (Omeprazole) 20 Mg Tab, 20 MG PO BID Paroxetine HCl (Paroxetine) 10 Mg Tab, 10 MG PO DAILY Primidone (Primidone) 50 Mg Tablet, 50 MG PO QHS Scheduled PRN Albuterol Sulfate (Proair Hfa) 8.5 Gm Hfa.aer.ad, 2 PUFF INH Q4H PRN for SHORTNESS OF BREATH Nitroglycerin (Nitrostat) 0.4 Mg Tab.subl, 0.4 MG SL NITRO PRN for CHEST PAIN Allergies Coded Allergies: Contrast Media (Unverified Allergy, Unknown, 11/22/19) A-FIB/CHADSVASC A-FIB History Current/History of A-Fib/PAF?: No CLARISSA BROJAS MD Feb 13, 2021 14:22
[2021-02-13] MEDS: guaiFENesin SYRUP 200 MG/10 ML UDC PO SCH ×2 (16:13→21:27)
[2021-02-13] MEDS: ACETAMINOPHEN TAB 650MG DOSE (2X325MG) PO PRN (16:14)
[2021-02-13] MEDS: FUROSEMIDE 40MG/4ML VIAL (J1940) IV SCH (16:14)
[2021-02-13] MEDS ORDERED: ALBUTEROL 90 MCG/ACT 8GM HFA INHALER INH PRN (18:15)
[2021-02-13] MEDS ORDERED: NITROGLYCERIN 0.4 MG SUBL TABLET SL PRN (18:15)
[2021-02-13] MEDS: PARoxetine 10MG TABLET PO SCH (18:35)
[2021-02-13] MEDS: allopurinoL 300 MG TAB PO SCH (18:35)
[2021-02-13] MEDS ORDERED: ACETYLCYSTEINE 20% 4 ML VIAL (200MG/ML) INH SCH (20:00)
--- NOTE | 2021-02-13 20:57 | ECGEPIP ---
[facility] - ED Test Date: 2021-02-13 Pat Name: HARDY WILLIAMSON Department: Room: - Gender: Male Optometric Technologist: FREDDIE : 1940 Requested By: Sean Lai Order Number: [id number] Reading MD: Patricia Long Measurements Intervals [place] Rate: 89 P: -28 PA: 182 QRS: 41 QRSD: 144 T: -21 QT: 386 QTc: 469 Interpretive Statements Normal sinus rhythm Right bundle branch block Inferior infarct , age undetermined increased rate 11/22/19 Electronically Signed on 02-13-2021 20:57:23 EDT by Patricia Long
[2021-02-13] MEDS ORDERED: DOXAZOSIN MESYLATE 4 MG TAB PO SCH (21:00)
[2021-02-13] MEDS ORDERED: ATORVASTATIN 20 MG TAB PO SCH (21:00)
[2021-02-13] MEDS ORDERED: PRIMIDONE 50 MG TAB PO SCH (21:00)
[2021-02-13] MEDS ORDERED: HumaLOG INSULIN (NovoLOG) PER UNIT SC SCH (21:00)
[2021-02-13] MEDS ORDERED: CLOPIDOGREL 75 MG TAB PO SCH (21:00)
[2021-02-13] MEDS ORDERED: ASPIRIN 81MG ENTERIC TABLET PO SCH (21:00)
[2021-02-13] MEDS: LEVEMIR (INSULIN DETEMIR) 1 UNITS/0.01ML SC SCH (21:27)
[2021-02-13] MEDS: BRIMONIDINE 0.15% OPHTH SOLN 5 ML OU SCH (21:27)
[2021-02-13] MEDS: METOPROLOL TART 25 MG TABLET PO SCH (21:29)
[2021-02-13] MEDS: GABAPENTIN 300 MG CAP PO SCH (21:29)
[2021-02-13] MEDS: OMEPRAZOLE 20 MG CAP PO SCH (21:29)
[2021-02-13] MEDS: SINEMET 25-100 MG TAB PO SCH (21:29)
[2021-02-14] MEDS: FUROSEMIDE 40MG/4ML VIAL (J1940) IV SCH ×2 (00:08→09:30)
[2021-02-14] MEDS: guaiFENesin SYRUP 200 MG/10 ML UDC PO SCH ×2 (04:38→09:30)
[2021-02-14] MEDS: ACETAMINOPHEN TAB 650MG DOSE (2X325MG) PO PRN (04:38)
[2021-02-14 06:00] VITALS: BP 162/74
[2021-02-14 07:05] LABS: HEMATOCRIT 35.6 % (42.0-52.0); HEMOGLOBIN 11.8 g/dl (13.5-17.5); MEAN CORPUSCULAR HEMOGLOBIN 29.6 pg (27.0-33.0); MEAN CORPUSCULAR HGB CONC 33.1 g/dl (32.0-36.5); MEAN CORPUSCULAR VOLUME 89.2 fl (80.0-96.0); RED BLOOD COUNT 3.99 10^6/uL (4.30-6.10); WHITE BLOOD COUNT 10.2 10^3/uL (4.0-10.0)
[2021-02-14 07:08] LABS: PLATELET COUNT, AUTOMATED 86 10^3/uL (150-450)
[2021-02-14 07:27] LABS: CREATININE FOR GFR 1.24 MG/DL (0.70-1.30); MAGNESIUM LEVEL 1.2 MG/DL (1.8-2.4); POTASSIUM SERUM 4.4 MEQ/L (3.5-5.1)
[2021-02-14 08:06] LABS: EOSINOPHILS 1 % (0-3); LYMPHOCYTES 5 % (16-44); MONOCYTES 3 % (0-5); NEUTROPHILS 90 % (28-66)
[2021-02-14 08:07] LABS: ANISOCYTOSIS 1+; PLATELET ESTIMATE DECREASED (NORMAL)
[2021-02-14] MEDS: HEPARIN SOD (PORCINE) 5000UNITS/ML 1ML VIAL/SYRINGE SC SCH (09:00)
[2021-02-14 09:30] VITALS: BP 158/70
[2021-02-14] MEDS: SINEMET 25-100 MG TAB PO SCH (09:30)
[2021-02-14] MEDS: DOCUSATE SODIUM 100MG CAPSULE PO SCH (09:30)
[2021-02-14] MEDS: LEVEMIR (INSULIN DETEMIR) 1 UNITS/0.01ML SC SCH (09:30)
[2021-02-14] MEDS: HumaLOG INSULIN (NovoLOG) PER UNIT SC SCH ×2 (09:30→12:50)
[2021-02-14] MEDS: METOPROLOL TART 25 MG TABLET PO SCH (09:30)
[2021-02-14] MEDS: allopurinoL 300 MG TAB PO SCH (09:30)
[2021-02-14] MEDS: PARoxetine 10MG TABLET PO SCH (09:30)
[2021-02-14] MEDS: GABAPENTIN 300 MG CAP PO SCH (09:31)
[2021-02-14] MEDS: BRIMONIDINE 0.15% OPHTH SOLN 5 ML OU SCH (09:31)
[2021-02-14] MEDS: OMEPRAZOLE 20 MG CAP PO SCH (09:31)
--- NOTE | 2021-02-14 11:02 | IPNPDOC ---
Text Note Date of Service The patient was seen on 02/14/21. NOTE Subjective: Patient was seen and examined this morning at bedside. He tells me his breathing feels a lot better overall he feels stronger and has been able to walk on his room without difficulty without supplemental oxygen. Kayla his nurse performed a walk test without oxygen and he did not drop below 89%. He denies chest pain. No acute overnight events were reported to me. He denies fevers or chills, last fever was at time of admission. Objective: Constitutional: Awake and alert, in no apparent distress, obese ENT: Sclera are clear. Mucosa is moist. Respiratory: Lungs CTA bilaterally with no crackles. No respiratory distress. on room air saturating at 94% Cardiovascular: RRR S1 and S2 are normal, no murmur Gastrointestinal: Abdomen is soft, non distended, non tender, BS present. Musculoskeletal: 1+ LE edema below the knees Neurologic: No focal neurological deficit. Mental Status: A&O x3, normal affect Assessment/plan: 80-year-old male history of diabetes, hypertension, CAD status post CABG, CKD presents with SOB found to have hypoxia and to have Parainfluenza as well as being fluid overloaded. Admitted for further medical workup and management. # Parainfluenza infection: This likely explains his presenting symptoms of shortness of breath, hypoxia, fever. No suspicion of superimposed bacterial infection at this time. No leukocytosis. Guaifenesin scheduled. Supportive management. Tylenol PRN for fevers. Did not drop below 89% on ambulation on room air # Acute on chronic CHFpEF exacerbation: His diuresis was stopped recently due to dehydration. Closer to euvolemic on exam today only 1+ pitting edema treatment can be continued with oral diuresis. Might have been contributing to his shortness of breath and hypoxia. Diuresis with Lasix IV initially and transitioned to oral Lasix at time of discharge and I recommended to him that his primary care physician should up/down titrate his lasix dosing. No crackles on exam. EF 60% on echo 2018. Should get a repeat echo done with PCP. # Lactic acidosis: Increased likely from hypoxia. Resolved now. # CAD status post CABG: Continue home medications. Continue metoprolol. Continue aspirin, Plavix and statin # Anxiety/depression: Continue home medications # GERD: Continue omeprazole # CKD: Cracking around baseline. Monitor. # Hypertension: Continue home meds. Monitor and titrate # IDDM: Hold metformin. ISS. Frequent Accu-Cheks. Hypoglycemic precautions. Levemir twice a day # DVT prophylaxis: Heparin A Narinder Hospitalist VS,Natalie, I+O VS, Natalie, I+O Laboratory Tests 02/14/21 06:44 Vital Signs Date Time Temp Pulse Resp B/P (MAP) Pulse Ox O2 Delivery O2 Flow Rate FiO2 02/14/21 10:30 93 02/14/21 09:30 74 158/70 02/14/21 07:42 Room Air 02/14/21 06:00 97.8 20 1.0 I&O- Last 24 Hours up to 6 AM 02/14/21 05:59 Intake Total 3220 ml Output Total 2525 ml Balance 695 ml CLARISSA BORJAS MD Feb 14, 2021 11:02
[2021-02-14] MEDS ORDERED: LASI40TA9 PO (11:03)
[2021-02-14] MEDS ORDERED: MAGNESIUM OXIDE 400MG TAB (MAG-OX) PO ONE (12:00)
== END 2021-02-14 13:35 | disposition home or self-care (01) ==
LOC: M ED 02:10 → EEVIPCON 08:02 → M ED INP 08:02 → ENRESERV 10:25 → M MS5PR 11:05
PROVIDERS: ADMIT Family Medicine; ATTEND Family Medicine
DX: B34.8 Other viral infections of unspecified site (principal); R09.02 Hypoxemia; R06.02 Shortness of breath; R50.9 Fever, unspecified; E87.2 Acidosis; I50.33 Acute on chronic diastolic (congestive) heart failure; I13.0 Hypertensive heart and chronic kidney disease with heart failure and stage 1 through stage 4 chronic kidney disease, or unspecified chronic kidney disease; E87.70 Fluid overload, unspecified; I25.10 Atherosclerotic heart disease of native coronary artery without angina pectoris; Z95.1 Presence of aortocoronary bypass graft; F41.9 Anxiety disorder, unspecified; F32.9 Major depressive disorder, single episode, unspecified; K21.9 Gastro-esophageal reflux disease without esophagitis; N18.30 Chronic kidney disease, stage 3 unspecified; E11.22 Type 2 diabetes mellitus with diabetic chronic kidney disease; R60.0 Localized edema; Z86.73 Personal history of transient ischemic attack (TIA), and cerebral infarction without residual deficits; Z91.041 Radiographic dye allergy status; Z79.899 Other long term (current) drug therapy; Z79.82 Long term (current) use of aspirin; Z79.02 Long term (current) use of antithrombotics/antiplatelets; Z79.4 Long term (current) use of insulin
CPT/HCPCS: 36415; 71045; 80048; 81001; 82550; 82553; 82803; 83605; 83735; 83880; 84484; 85025; 85049; 85055; 87798; 93005; 96372; 96374; 96376; 99285; J1644; J1940

== ENCOUNTER 2021-02-17 19:27 | Inpatient (IN) | payer BC ==
[~2021-02-17] VITALS: Ht 167.6 cm; Wt 116.8 kg
[~2021-02-17 19:27] MED LIST changes: +ASPI-161 PO; +B-12100021 PO; +BRIM2OPD OU; +CARB25TA9 PO; +DESL1TAB3 PO; +GABA-282 PO; +LASI40TA9 PO; +METF-723 PO; +NITR4TASL SL; +PRIM50TA6 PO; +TREL1AER INH
[2021-02-17 20:49] LABS: BASO % 0.2 % (0.0-1.0); EOS # 0.3 10^3/uL (0.0-0.5); EOS % 3.2 % (0.0-3.0); HEMATOCRIT 36.4 % (42.0-52.0); LYMPH # 1.1 10^3/uL (1.5-5.0); LYMPH % 10.5 % (24.0-44.0); MEAN CORPUSCULAR HEMOGLOBIN 29.2 pg (27.0-33.0); MEAN CORPUSCULAR VOLUME 88.6 fl (80.0-96.0); MONO # 0.9 10^3/uL (0.0-0.8); MONO % 8.5 % (2.0-8.0); NEUTROPHILS # 8.1 10^3/uL (1.5-8.5); NEUTROPHILS % 75.8 % (36.0-66.0); PLATELET COUNT, AUTOMATED 123 10^3/uL (150-450); RED BLOOD COUNT 4.11 10^6/uL (4.30-6.10); WHITE BLOOD COUNT 10.6 10^3/uL (4.0-10.0)
[2021-02-17] MEDS ORDERED: LEVEMIR (INSULIN DETEMIR) 1 UNITS/0.01ML SC SCH (21:00)
[2021-02-17 21:24] LABS: ALBUMIN 2.6 GM/DL (3.2-5.2); ALT/SGPT 25 U/L (12-78); BILIRUBIN,DIRECT 0.2 MG/DL (0.0-0.2); BILIRUBIN,TOTAL 0.5 MG/DL (0.2-1.0); BLOOD UREA NITROGEN 32 MG/DL (7-18); CALCIUM LEVEL 8.4 MG/DL (8.8-10.2); CARBON DIOXIDE LEVEL 25 MEQ/L (21-32); CHLORIDE LEVEL 103 MEQ/L (98-107); CK-MB VALUE MASS 4.4 NG/ML (<3.6); CPK CREATINE PHOSPHOKINASE 186 U/L (39-308); CREATININE FOR GFR 1.23 MG/DL (0.70-1.30); GLOMERULAR FILTRATION RATE > 60.0 (>42); GLUCOSE, FASTING 175 MG/DL (70-100); MB/CK RELATIVE INDEX 2.37 (< OR =4); NT-PRO BNP 784 PG/ML (<450); POTASSIUM SERUM 4.1 MEQ/L (3.5-5.1); SODIUM LEVEL 137 MEQ/L (136-145); TROPONIN I < 0.02 NG/ML (< 0.10)
[2021-02-17] MEDS ORDERED: FURO40TA2 PO (22:29)
[2021-02-17] MEDS ORDERED: DOXYCYCLINE HYCLATE 100MG TABLET PO ONE (22:40)
[2021-02-17] MEDS ORDERED: FUROSEMIDE 40MG/4ML VIAL (J1940) IV ONE (22:40)
[2021-02-17] MEDS ORDERED: cefTRIAXone SOD 1 GM in D5W MINI-BAG PLUS 50 ML IV ONE (22:40)
[2021-02-17] MEDS ORDERED: ACETAMINOPHEN TAB 650MG DOSE (2X325MG) PO PRN (23:05)
[2021-02-17] MEDS ORDERED: MAALOX 30 ML SUSP *UDC PO PRN (23:05)
[2021-02-17] MEDS ORDERED: MOM 30ML SUSPENSION UDC PO PRN (23:05)
--- NOTE | 2021-02-17 23:07 | REPVR ---
PROCEDURE INFORMATION: Exam: XR Chest Exam date and time: 02/17/2021 9:44 PM Age: 80 years old Clinical indication: Other: Dyspnea/cough TECHNIQUE: Imaging protocol: XR of the chest. Views: 1 view. COMPARISON: CR Chest, 1 view 02/13/2021 3:18 AM FINDINGS: Limitations: Examination is limited by body habitus. Tubes, catheters and devices: Implantable loop recorder over the left hemithorax. Lungs: Unremarkable. No consolidation. Pleural spaces: Unremarkable. No pleural effusion. No pneumothorax. Heart/Mediastinum: Patient is status post cardiac surgery. Heart size is within normal limits. Vasculature: Mild atherosclerotic calcification of the aortic arch. Bones/joints: Status post median sternotomy. IMPRESSION: No acute infiltrates. Electronically signed by: Samuel Jolly On 02/17/2021 23:07:18 PM
[2021-02-17 23:16] LABS: RSV AMPLIFICATION NEGATIVE (NEGATIVE)
[2021-02-18 00:10] VITALS: BP 155/70
[2021-02-18] MEDS ORDERED: DEXTROSE 50% 50 ML SYRINGE IV PRN (00:15)
[2021-02-18] MEDS ORDERED: GLUCOSE 4GM CHEW TABLET PO PRN (00:15)
[2021-02-18] MEDS ORDERED: GLUCAGON INJ 1MG VIAL SC PRN (00:15)
[2021-02-18] MEDS ORDERED: NITROGLYCERIN 0.4 MG SUBL TABLET SL PRN (00:30)
[2021-02-18] MEDS: guaiFENesin ER 600 MG TAB PO SCH ×3 (00:36→21:51)
--- NOTE | 2021-02-18 00:41 | HPEPDOC ---
[facility] Medical History & Physical Date of Admission Feb 17, 2021 Date of Service: Feb 17, 2021 Primary Care Physician: Jr Tran Collins Attending Physician: JIMBO NOBLES MD History and Physical CHIEF COMPLAINT: Shortness of breath HISTORY OF PRESENT ILLNESS: Mr. Kovacs is a 80-year-old male who presented back to the ER this evening with complaints of shortness of breath and nonproductive cough with increased dyspnea on exertion. Mr. Rod was discharged on after being treated for "parainfluenza" and acute diastolic congestive heart failure. He was sent home on 40 mg of Lasix daily which she started on Friday. Despite this, he complains of 2 days of fever. His noted his fever to be around 100. He was afebrile at the time of his presentation, but hasn't had Tylenol at around 4 PM. He state s he lost quite a bit of weight during his last admission due to diuresis, but noticed that his urinary output after taking the Lasix this morning, was not as much as he was used to putting out. He also complained of increased dizziness and somnolence. He went on to say that he has been experiencing visual and auditory hallucinations. He says this afternoon. He spoke to a friend of his that was sitting on his couch, only to find out that he wasn't really there. His said this has happened several times over the last couple of days. He denies any urinary frequency, urgency, or lower abdominal pain. UA was negative. He complains of a hacking nonproductive cough. He believes that he has been diagnosed with COPD in the past and takes Trilogy daily. He also has nebulizers at home and did use his nebulizer once yesterday but did not want to use it today. On initial evaluation, the patient was noted to be satting 91% on room air. Blood pressure was 167/80. Pulse was in the 60s. White blood Cell count did show some mild elevation at 10.6. Hemoglobin and hematocrit was 12 and 36. Neutrophils were elevated at 75.8. BNP was slightly improved over his last admission at 784. Portable chest x-ray showed no acute infiltrates. PAST MEDICAL HISTORY: 1. Congestive heart failure, diastolic with ejection fraction 60% per echocardiogram in 2018. 2. Diabetes type 2, insulin-dependent. 3. COPD 4. Depression. 5. Anxiety. 6. Hypertension. 7. Hyperlipidemia. 8. Coronary artery disease. 9. Chronic kidney disease stage III. 10. Degenerative joint disease. 11. Gastroesophageal reflux disease. 12. Kidney stone. 13. Parkinson's disease PAST SURGICAL HISTORY: 1. Lithotripsy. 2. CABG 3. Repair of a severed right thumb. 4. Deviated septum repair SOCIAL HISTORY: Tobacco use:, Quit 15 years ago ETOH:. Socially Illicit drug use:, Denies Patient lives with: His FAMILY HISTORY: . Patient's mother at age 83 with cerebrovascular accident. His father was 86 with a history of diabetes and COPD. REVIEW OF SYSTEMS: Complete 10 point review systems is negative except as noted above PHYSICAL EXAMINATION: Patient is seen in the ER, sitting up in a chair beside the stretcher.. He is alert and oriented x 3. HEENT is WNL. Neck is supple. . He does have a nonproductive cough. Lungs with expiratory wheeze and crackles bilateral bases. Heart regular rate and rhythm without murmur. Abdomen is obese, soft, non- tender to palpation with bowel sounds positive. Extremities with good ROM and strength equal bilaterally. Trace lower extremity edema. Pedal pulses are p ositive. Skin is warm and dry with no obvious rash or lesion. Neuro: grossly intact. Psych: He is pleasant and cooperative. ASSESSMENT AND PLAN: 1. Acute exacerbation of chronic obstructive pulmonary disease. Will start the patient on IV steroids and continue his routine nebulizers including DuoNeb and Pulmicort and will continue Mucinex. Will have oxygen available for use as needed. Encourage good pulmonary toilet. Add Tessalon Perles and Robitussin for cough. Patient to continue Trilogy at discharge. 2. Acute exacerbation of diastolic congestive heart failure with preserved ejection fraction. The patient on Lasix twice a day for now. Monitor intake and output closely. We'll repeat echocardiogram since he has not had one done since 2018. 3. Acute metabolic encephalopathy with delirium secondary to acute COPD exacerbation and acute CHF exacerbation. UA is negative. Continue with plan as outlined above. 4. Diabetes type 2, insulin-dependent. We'll continue home dose of Levemir twice a day. Monitor blood glucose before meals and at bedtime and add sliding scale for use as needed. Continue on consistent carbohydrate diet. Will check HbA1c in the morning. 5. Parkinson's disease. Continue Sinemet and primidone. 6. Coronary artery disease. Continue aspirin, statin and beta amelia. Monitor on telemetry. 7. Hypertension. Lisinopril. Monitor with routine vital signs and adjust medications as needed based on trends. 8. Chronic kidney disease stage III. Creatinine at baseline. Monitor intake and output closely. Avoid nephrotoxic medications. Recheck renal function in the morning. 9. Anxiety and depression. Continue Paxil. 10. DVT prophylaxis. Lovenox. CODE STATUS: CODE STATUS was discussed with the patient. He desires to be considered full code. He states his , Parul, with active cysts are again if he were unable to make his decisions. Patient is considered high risk of further to radiation including worsening respiratory status or respiratory arrest. He is admitted for close observation and further evaluation and expected to remain at least one midnight. Vital Signs Vital Signs Date Time Temp Pulse Resp B/P (MAP) Pulse Ox O2 Delivery O2 Flow Rate FiO2 02/17/21 23:42 63 18 95 Room Air 02/17/21 23:31 156/65 (95) 02/17/21 19:30 98.7 Laboratory Data Labs 24H Laboratory Tests 2 02/17/21 20:39: Immature Granulocyte % (Auto) 1.8, Neutrophils (%) (Auto) 75.8H, Lymphocytes (%) (Auto) 10.5L, Monocytes (%) (Auto) 8.5H, Eosinophils (%) (Auto) 3.2H, Basophils (%) (Auto) 0.2, Neutrophils # (Auto) 8.1, Lymphocytes # (Auto) 1.1L, Monocytes # (Auto) 0.9H, Eosinophils # (Auto) 0.3, Basophils # (Auto) 0.0, Nucleated Red Blood Cells % (auto) 0.0, Anion Gap 9, Glomerular Filtration Rate > 60.0, Lactic Acid Level 1.5, Calcium Level 8.4L, Total Bilirubin 0.5, Direct Bilirubin 0.2, Aspartate Amino Transf (AST/SGOT) 23, Alanine Aminotransferase (ALT/SGPT) 25, Alkaline Phosphatase 85, Total Creatine Kinase 186, Creatine Kinase MB 4.4H, Creatine Kinase MB Relative Index 2.37, Troponin I < 0.02, TS-Sjn-H-Type Natriuretic Peptide 784H, Total Protein 6.0L, Albumin 2.6L, Albumin/Globulin Ratio 0.8 6/19/21 22:18: Coronavirus (COVID-19)(PCR) NEGATIVE, Influenza Type A (RT-PCR) NEGATIVE, Influenza Type B (RT-PCR) NEGATIVE, Respiratory Syncytial Virus (PCR) NEGATIVE 02/17/21 23:18: Urine Color YELLOW, Urine Appearance CLEAR, Urine pH 5.0, Urine Specific [place] 1.016, Urine Protein NEGATIVE, Urine Glucose (UA) NEGATIVE, Urine Ketones NEGATIVE, Urine Blood NEGATIVE, Urine Nitrite NEGATIVE, Urine Bilirubin NEGATIVE, Urine Urobilinogen 0.2, Urine Leukocyte Esterase NEGATIVE, Urine WBC (Auto) 1, Urine RBC (Auto) 2, Urine Hyaline Casts (Auto) 0, Urine Bacteria (A uto) NEGATIVE, Urine Squamous Epithelial Cells 0, Urine Mucus (Auto) SMALL, Urine Sperm (Auto) CBC/BMP Laboratory Tests 02/17/21 20:39 Home Medications Scheduled Allopurinol (Zyloprim) 300 Mg Tab, 300 MG PO DAILY Aspirin (Aspirin EC) 81 Mg Tablet.dr, 81 MG PO QPM TAKES AT DINNER Atorvastatin Calcium (Atorvastatin Calcium) 40 Mg Tab, 40 MG PO QHS Brimonidine Tartrate (Brimonidine Tartrate) 0.15% 5ML Drops, 1 DROP OU BID Carbidopa/Levodopa (Carbidopa-Levodopa 25-100 Tab) 1 Each Tablet, 1 TAB PO BID 0900, 1700 Clopidogrel Bisulfate (Clopidogrel) 75 Mg Tablet, 75 MG PO QHS Cyanocobalamin (Vitamin B-12) (B-12) 1,000 Mcg Tablet, 1,000 MCG PO DAILY Desloratadine (Desloratadine) 5 Mg Tablet, 5 MG PO DAILY Doxazosin Mesylate (Doxazosin) 4 Mg Tab, 4 MG PO QPM TAKES AT DINNER Fluticasone/Umeclidin/Vilanter (Trelegy Ellipta 100-62.5-25) 1 Each Blst.w.dev, 1 PUFF INH DAILY Furosemide (Furosemide) 40 Mg Tablet, 40 MG PO DAILY Gabapentin (Gabapentin) 300 Mg Capsule, 300 MG PO BID Insulin Detemir (Levemir) 1 Units/0.01 Ml Susp, 63 UNITS SC QAM Insulin Detemir (Levemir) 1 Units/0.01 Ml Susp, 73 UNITS SC QHS Insulin Human Lispro (Humalog) 1 Units/0.01 Ml Inj, 1 DOSE SC AC PER SLIDING SCALE Lisinopril (Lisinopril) 10 Mg Tab, 10 MG PO QPM TAKES AT DINNER Metformin HCl (Metformin HCl ER) 500 Mg Tab.er.24h, 500 MG PO BID Metoprolol Tartrate (Metoprolol Tartrate) 25 Mg Tab, 25 MG PO BID Omeprazole (Omeprazole) 20 Mg Tab, 20 MG PO BID Paroxetine HCl (Paroxetine) 10 Mg Tab, 10 MG PO DAILY Primidone (Primidone) 50 Mg Tablet, 50 MG PO QHS Scheduled PRN Albuterol Sulfate (Proair Hfa) 8.5 Gm Hfa.aer.ad, 2 PUFF INH Q4H PRN for SHORTNESS OF BREATH Nitroglycerin (Nitrostat) 0.4 Mg Tab.subl, 0.4 MG SL NITRO PRN for CHEST PAIN Allergies Coded Allergies: Contrast Media (Unverified Allergy, Unknown, 11/22/19) A-FIB/CHADSVASC A-FIB History Current/History of A-Fib/PAF?: No TYRA NOEL Feb 18, 2021 00:41
[2021-02-18] MEDS: CLOPIDOGREL 75 MG TAB PO SCH ×2 (00:54→21:51)
[2021-02-18] MEDS: METOPROLOL TART 25 MG TABLET PO SCH ×3 (00:54→21:52)
[2021-02-18] MEDS: ASPIRIN 81MG ENTERIC TABLET PO SCH ×2 (00:54→18:07)
[2021-02-18] MEDS: OMEPRAZOLE 20 MG CAP PO SCH ×3 (00:54→21:51)
[2021-02-18] MEDS: GABAPENTIN 300 MG CAP PO SCH ×3 (00:54→21:51)
[2021-02-18] MEDS: methylPREDNISolone 125MG 2ML VIAL IV SCH ×2 (00:55→12:08)
[2021-02-18 02:00] VITALS: BP 147/63
[2021-02-18] MEDS: DOXAZOSIN MESYLATE 4 MG TAB PO SCH ×2 (03:30→18:08)
[2021-02-18] MEDS: PRIMIDONE 50 MG TAB PO SCH ×2 (03:30→21:52)
[2021-02-18 06:00] VITALS: BP 146/82
[2021-02-18 06:30] LABS: HEMATOCRIT 37.3 % (42.0-52.0); HEMOGLOBIN 12.5 g/dl (13.5-17.5); MEAN CORPUSCULAR HEMOGLOBIN 29.3 pg (27.0-33.0); MEAN CORPUSCULAR HGB CONC 33.5 g/dl (32.0-36.5); MEAN CORPUSCULAR VOLUME 87.4 fl (80.0-96.0); PLATELET COUNT, AUTOMATED 142 10^3/uL (150-450); RED BLOOD COUNT 4.27 10^6/uL (4.30-6.10); WHITE BLOOD COUNT 12.1 10^3/uL (4.0-10.0)
[2021-02-18 06:50] LABS: HEMOGLOBIN A1c 7.5 %
--- NOTE | 2021-02-18 06:54 | IPNPDOC ---
Text Note Date of Service The patient was seen on 02/18/21. NOTE I was informed by the patient's RN Savannah that the patient had a fall; while trying to stand-up he grabbed on to a door handle and got his feet tangled in his bedsheets. He denied hitting his head. His RN also add that during one of his assessments when she woke him up he tho ught [place] and wasn't sure if his RN was a real person. His vitals and serum glucose were wnl; his serum glucose was 233 At the time of my assessment his PE was only remarkable for a small bruise at the left upper back. The JAIDEN in his neck was intact. #Mechanical Fall Because he is being diuresed, I will ask his RN to also have his orthostats checked when his next set of vitals are done. #Confusion Because he has a [place] habitus and has been confused during assessments; we will check his PCO2. VS,Zeinae, I+O VS, Khanhbone, I+O Laboratory Tests 02/17/21 20:39 02/18/21 05:59 Vital Signs Date Time Temp Pulse Resp B/P (MAP) Pulse Ox O2 Delivery O2 Flow Rate FiO2 02/18/21 06:00 97.7 69 18 146/82 (103) 93 Room Air I&O- Last 24 Hours up to 6 AM 02/18/21 06:00 Intake Total 50 ml Output Total 0 ml Balance 50 ml JIMBO NOBLES MD Feb 18, 2021 06:54
[2021-02-18 07:01] LABS: BLOOD UREA NITROGEN 30 MG/DL (7-18); CALCIUM LEVEL 8.5 MG/DL (8.8-10.2); CARBON DIOXIDE LEVEL 26 MEQ/L (21-32); CHLORIDE LEVEL 102 MEQ/L (98-107); CREATININE FOR GFR 1.16 MG/DL (0.70-1.30); GLOMERULAR FILTRATION RATE > 60.0 (>42); GLUCOSE, FASTING 217 MG/DL (70-100); MAGNESIUM LEVEL 1.2 MG/DL (1.8-2.4); POTASSIUM SERUM 4.5 MEQ/L (3.5-5.1); SODIUM LEVEL 136 MEQ/L (136-145)
[2021-02-18] MEDS: IPRATROPIUM 0.5MG/ALBUTEROL 2.5MG INH SOL UD 3ML (DUONEB) NEB SCH ×3 (07:24→19:26)
[2021-02-18] MEDS: BUDESONIDE 0.5 MG/2 ML INHALATION SUSPENSION INH SCH ×2 (07:24→19:26)
[2021-02-18 08:15] LABS: VENOUS BASE EXCESS -1.9 (-2.0-2.0); VENOUS HCO3 22.1 MEQ/L (23.0-27.0); VENOUS O2 SATURATION 95.4 % (60.0-80.0); VENOUS PARTIAL PRESSURE CO2 35.3 mmHg (38.0-50.0); VENOUS PARTIAL PRESSURE O2 82.7 mmHg (30.0-50.0); VENOUS PH 7.414 UNITS (7.330-7.430); VENOUS STANDARD HCO3 22.9 MEQ/L; VENOUS TOTAL CO2 23.2 MEQ/L (24.0-28.0)
[2021-02-18 09:00] VITALS: BP_SYST 118; BP_SYST 155; BP_SYST 156; BP_DIAS 55; BP_DIAS 71; BP_DIAS 73
[2021-02-18] MEDS ORDERED: FUROSEMIDE 40MG/4ML VIAL (J1940) IV SCH (09:00)
[2021-02-18] MEDS: HumaLOG INSULIN (NovoLOG) PER UNIT SC SCH ×4 (09:03→21:53)
[2021-02-18] MEDS: SINEMET 25-100 MG TAB PO SCH ×2 (09:03→18:07)
[2021-02-18] MEDS: BRIMONIDINE 0.15% OPHTH SOLN 5 ML OU SCH ×2 (09:03→22:45)
[2021-02-18] MEDS: LEVEMIR (INSULIN DETEMIR) 1 UNITS/0.01ML SC SCH ×2 (09:03→21:52)
[2021-02-18] MEDS: ENOXAPARIN 40MG/0.4ML SYRINGE (J1650 PER 10MG) SC SCH (09:03)
[2021-02-18] MEDS: allopurinoL 300 MG TAB PO SCH (09:04)
[2021-02-18] MEDS: PARoxetine 10MG TABLET PO SCH (09:04)
--- NOTE | 2021-02-18 13:09 | IPNPDOC ---
Text Note Date of Service The patient was seen on 02/18/21. NOTE Subjective: Patient is a 80-year-old male with a PMHx of Parkinson's, Diastolic CHF, CAD s/p CABG, HTN, IDDM2, DLP, COPD, CKD3, Depression / Anxiety, GERD who presented to the ER with progressive shortness of breath and nonproductive cough. Patient had reported that he was experiencing fevers at home. He has had a recent admission for fluid overload and was discharged with furosemide 40 PO daily. Patient was readmitted to the hospital service for evaluation and treatment of suspected COPD exacerbation/diastolic CHF. Overnight patient had fallen and had reported confusion. Patient was seen and examined at the bedside. Currently patient reports that he is feeling relatively well. Reports that his breathing is doing slightly better. He denies any nausea, vomiting or chest pain. Denies any significant shortness of breath or cough. Denies any abdominal pain, diarrhea, or urinary discomfort. Objective: Vitals (See below) General: Lying in bed, appears comfortable, AAOx3 HEENT: NC, AT CVS: +S1S2 Lungs: Fair air entry b/l, there does not appear to be any significant wheezing, rhonchi or crackles Abdomen: Soft, ND, NT Extremities: 1+ Pitting edema bilaterally, - Calf tenderness Imaging: CXR 02/17: No acute infiltrates. Assessment and plan: Shortness of breath - possibly 2/2 multifactorial etiology Acute exacerbation of COPD - Patient reports that his breathing is doing slightly better - No significant wheezing on exam - c/w Solu-Medrol; will reduce dose - c/w inhaled therapy as ordered Acute decompensated Diastolic CHF - Physical still reveals 1+ pitting edema bilaterally - ECHO pending - Strict ins/outs, daily weight, fluid restriction - Will reduce furosemide IV (re: dizziness and lightheadedness) Acute metabolic encephalopathy - Appears to be improving - No focal deficits noted Hypomagnesemia - Will supplement IDDM2 - c/w ISS and Levemir Parkinson's - c/w Sinemet and Primidone CAD s/p CABG - c/w ASA, Statin, Metoprolol HTN - BP well controlled - c/w Metoprolol and Lisinoprl CKD3 - Cr appears to be at baseline Anxiety and depression - c/w Paxil GI prophylaxis - c/w Omeprazole DVT prophylaxis - c/w Lovenox Disposition: - Awaiting clinical improvement - Anticipate DC home within 24-48 hours VS,Fishbone, I+O VS, Fishbone, I+O Laboratory Tests 02/17/21 20:39 02/18/21 05:59 Vital Signs Date Time Temp Pulse Resp B/P (MAP) Pulse Ox O2 Delivery O2 Flow Rate FiO2 02/18/21 09:04 75 156/73 02/18/21 06:00 97.7 18 93 Room Air I&O- Last 24 Hours up to 6 AM 02/18/21 06:00 Intake Total 50 ml Output Total 0 ml Balance 50 ml MARCELL ALCANTARA MD Feb 18, 2021 13:09
[2021-02-18 14:00] VITALS: BP 169/76
--- NOTE | 2021-02-18 14:28 | ECGEPIP ---
[facility] - ED Test Date: 2021-02-17 Pat Name: HARDY WILLIAMSON Department: Room: [place] [address] Gender: Male Rate Setter: : 1940 Requested By: DENISE TORRES Order Number: [id number] Reading MD: Patricia Long Measurements Intervals [place] Rate: 67 P: WI: 198 QRS: 38 QRSD: 146 T: -8 QT: 474 QTc: 500 Interpretive Statements Sinus rhythm with occasional premature ventricular complexes Right bundle branch block Inferior infarct , age undetermined decreased rate 02/13/21 Electronically Signed on 02-18-2021 14:28:32 EDT by Patricia Long
[2021-02-18] MEDS: MAG SULF 1GM/100ML (MAG RUN) 1 GM in IV 1 EA IV SCH ×3 (14:33→16:19)
[2021-02-18] MEDS: ATORVASTATIN 20 MG TAB PO SCH (21:51)
[2021-02-18 22:00] VITALS: BP 139/60
[2021-02-19] MEDS ORDERED: methylPREDNISolone 40MG 1ML VIAL IV SCH
[2021-02-19] MEDS: IPRATROPIUM 0.5MG/ALBUTEROL 2.5MG INH SOL UD 3ML (DUONEB) NEB SCH ×4 (01:24→19:39)
[2021-02-19 06:00] VITALS: BP 130/93
[2021-02-19 06:29] LABS: BASO % 0.1 % (0.0-1.0); EOS % 0.1 % (0.0-3.0); HEMATOCRIT 34.8 % (42.0-52.0); HEMOGLOBIN 11.5 g/dl (13.5-17.5); LYMPH # 0.9 10^3/uL (1.5-5.0); LYMPH % 6.5 % (24.0-44.0); MEAN CORPUSCULAR HEMOGLOBIN 29.3 pg (27.0-33.0); MEAN CORPUSCULAR VOLUME 88.5 fl (80.0-96.0); MONO % 6.9 % (2.0-8.0); NEUTROPHILS # 12.1 10^3/uL (1.5-8.5); NEUTROPHILS % 85.3 % (36.0-66.0); PLATELET COUNT, AUTOMATED 136 10^3/uL (150-450); RED BLOOD COUNT 3.93 10^6/uL (4.30-6.10); WHITE BLOOD COUNT 14.2 10^3/uL (4.0-10.0)
[2021-02-19 06:47] LABS: CALCIUM LEVEL 8.8 MG/DL (8.8-10.2); CREATININE FOR GFR 1.38 MG/DL (0.70-1.30); GLOMERULAR FILTRATION RATE 53.1 (>42); POTASSIUM SERUM 4.1 MEQ/L (3.5-5.1)
[2021-02-19] MEDS: BUDESONIDE 0.5 MG/2 ML INHALATION SUSPENSION INH SCH ×2 (07:23→19:39)
[2021-02-19] MEDS: HumaLOG INSULIN (NovoLOG) PER UNIT SC SCH ×4 (08:20→21:45)
[2021-02-19] MEDS: predniSONE 20 MG TAB PO SCH (08:21)
[2021-02-19] MEDS: GABAPENTIN 300 MG CAP PO SCH ×2 (08:21→21:42)
[2021-02-19] MEDS: guaiFENesin ER 600 MG TAB PO SCH ×2 (08:21→21:42)
[2021-02-19] MEDS: ENOXAPARIN 40MG/0.4ML SYRINGE (J1650 PER 10MG) SC SCH (08:21)
[2021-02-19] MEDS: LEVEMIR (INSULIN DETEMIR) 1 UNITS/0.01ML SC SCH ×2 (08:21→21:46)
[2021-02-19] MEDS: allopurinoL 300 MG TAB PO SCH (08:21)
[2021-02-19] MEDS: SINEMET 25-100 MG TAB PO SCH ×2 (08:21→17:25)
[2021-02-19] MEDS: METOPROLOL TART 25 MG TABLET PO SCH ×2 (08:22→21:44)
[2021-02-19] MEDS: OMEPRAZOLE 20 MG CAP PO SCH ×2 (08:22→21:42)
[2021-02-19] MEDS: PARoxetine 10MG TABLET PO SCH (08:22)
[2021-02-19] MEDS: BRIMONIDINE 0.15% OPHTH SOLN 5 ML OU SCH ×2 (08:27→21:46)
--- NOTE | 2021-02-19 08:42 | REP ---
INDICATION: SOB COMPARISON: 11/22/2019 the only prior TECHNIQUE: Standard helical technique without intravenous contrast administration FINDINGS: The mediastinum and pulmonary zander are stable. There is no mass or adenopathy. There are no pleural or pericardial effusions. The imaged upper abdomen is stable. There is evidence of a right renal cyst and bilateral renovascular calcifications. The imaged osseous structures are unchanged. There are spinal degenerative changes status quo. Evaluation of the lung rivera shows scattered asymmetric parenchymal densities some with peripheral ground-glass opacities all of which have increased from the prior exam. These are numerous. There is cylindrical bronchiectasis which appears stable. No spiculated masses have developed. IMPRESSION: Worsening chronic lung field changes as described above. Pulmonary consultation is suggested. <Electronically signed by Donovan Godron > 02/19/21 0384
[2021-02-19 10:00] VITALS: BP 139/65
--- NOTE | 2021-02-19 11:20 | IPNPDOC ---
Text Note Date of Service The patient was seen on 02/19/21. NOTE Subjective: Patient is a 80-year-old male with a PMHx of Parkinson's, Diastolic CHF, CAD s/p CABG, HTN, IDDM2, DLP, COPD, CKD3, Depression / Anxiety, GERD who presented to the ER with progressive shortness of breath and nonproductive cough. Patient had reported that he was experiencing fevers at home. He has had a recent admission for fluid overload and was discharged with furosemide 40 PO daily. Patient was readmitted to the hospital service for evaluation and treatment of suspected COPD exacerbation/diastolic CHF. Patient was seen and examined at the bedside. Patient reports that his breathing is doing better. He denies any significant cough. Denies chest pain, has not spent any nausea, vomiting, abdominal pain, denies any diarrhea, or urinary discomfort. Objective: Vitals (See below) General: Patient is sitting up in chair, appears to be comfortable, is awake, alert, oriented 3 HEENT: NC, AT CVS: +S1S2 Lungs: There appears to be fair air entry bilaterally without evidence of wheezing, crackles or rhonchi Abdomen: Soft, nondistended, nontender, obese Extremities: There is 1+ pitting edema bilaterally Imaging: CXR 02/17: No acute infiltrates. CT chest 02/19: Worsening chronic lung field changes as described above. Pulmonary consultation is suggested. Assessment and plan: Shortness of breath - possibly 2/2 multifactorial etiology Acute exacerbation of COPD - Patient reported that his breathing is doing better - Physical does not reveal any significant wheezing - Imaging noted above - c/w Prednisone; s/p Solumedrol - c/w inhaled therapy as ordered - Will discuss with pulmonology today Acute decompensated Diastolic CHF - Physical still reveals 1+ pitting edema bilaterally - ECHO pending - Strict ins/outs, daily weight, fluid restriction - s/p Furosemide Acute metabolic encephalopathy - Appears to be improving - No focal deficits noted s/p Hypomagnesemia IDDM2 - c/w ISS and Levemir at adjusted dose Parkinson's - c/w Sinemet and Primidone CAD s/p CABG - c/w ASA, Statin, Metoprolol HTN - BP well controlled - c/w Metoprolol and Lisinopril CKD3 - Cr appears to be at baseline Anxiety and depression - c/w Paxil GI prophylaxis - c/w Omeprazole DVT prophylaxis - c/w Lovenox Disposition: - Awaiting clinical improvement - Will discuss with pulmonology Natalie RICHARDSON I+O Natalie RICHARDSON I+O Laboratory Tests 02/19/21 05:50 Vital Signs Date Time Temp Pulse Resp B/P (MAP) Pulse Ox O2 Delivery O2 Flow Rate FiO2 02/19/21 08:22 73 130/93 02/19/21 06:00 98.0 18 93 Room Air I&O- Last 24 Hours up to 6 AM 02/19/21 05:59 Intake Total 1310 ml Output Total 300 ml Balance 1010 ml MARCELL ALCANTARA MD Feb 19, 2021 11:20
[2021-02-19 14:00] VITALS: BP 147/66
[2021-02-19] MEDS: ASPIRIN 81MG ENTERIC TABLET PO SCH (17:25)
[2021-02-19] MEDS: DOXAZOSIN MESYLATE 4 MG TAB PO SCH (17:25)
[2021-02-19] MEDS ORDERED: HumaLOG INSULIN (NovoLOG) PER UNIT SC SCH (17:30)
[2021-02-19 18:00] VITALS: BP 146/81
[2021-02-19] MEDS: ATORVASTATIN 20 MG TAB PO SCH (21:41)
[2021-02-19] MEDS: CLOPIDOGREL 75 MG TAB PO SCH (21:42)
[2021-02-19] MEDS: PRIMIDONE 50 MG TAB PO SCH (21:42)
[2021-02-19 22:00] VITALS: BP 152/63
[2021-02-20] MEDS: IPRATROPIUM 0.5MG/ALBUTEROL 2.5MG INH SOL UD 3ML (DUONEB) NEB SCH ×4 (01:08→19:19)
[2021-02-20 06:00] VITALS: BP 157/87
[2021-02-20 07:00] LABS: BASO % 0.2 % (0.0-1.0); EOS % 0.3 % (0.0-3.0); HEMOGLOBIN 11.5 g/dl (13.5-17.5); LYMPH # 1.2 10^3/uL (1.5-5.0); LYMPH % 11.2 % (24.0-44.0); MEAN CORPUSCULAR HEMOGLOBIN 29.4 pg (27.0-33.0); MEAN CORPUSCULAR HGB CONC 32.9 g/dl (32.0-36.5); MEAN CORPUSCULAR VOLUME 89.5 fl (80.0-96.0); MONO # 0.7 10^3/uL (0.0-0.8); MONO % 6.4 % (2.0-8.0); NEUTROPHILS # 8.5 10^3/uL (1.5-8.5); NEUTROPHILS % 80.2 % (36.0-66.0); PLATELET COUNT, AUTOMATED 139 10^3/uL (150-450); RED BLOOD COUNT 3.91 10^6/uL (4.30-6.10); WHITE BLOOD COUNT 10.6 10^3/uL (4.0-10.0)
[2021-02-20] MEDS: BUDESONIDE 0.5 MG/2 ML INHALATION SUSPENSION INH SCH ×2 (07:14→19:19)
[2021-02-20 07:22] LABS: BLOOD UREA NITROGEN 30 MG/DL (7-18); CALCIUM LEVEL 8.8 MG/DL (8.8-10.2); CARBON DIOXIDE LEVEL 26 MEQ/L (21-32); CHLORIDE LEVEL 107 MEQ/L (98-107); CREATININE FOR GFR 1.03 MG/DL (0.70-1.30); GLOMERULAR FILTRATION RATE > 60.0 (>42); GLUCOSE, FASTING 288 MG/DL (70-100); MAGNESIUM LEVEL 1.8 MG/DL (1.8-2.4); POTASSIUM SERUM 4.3 MEQ/L (3.5-5.1); SODIUM LEVEL 139 MEQ/L (136-145)
[2021-02-20] MEDS: BRIMONIDINE 0.15% OPHTH SOLN 5 ML OU SCH ×2 (08:29→20:36)
[2021-02-20] MEDS: ENOXAPARIN 40MG/0.4ML SYRINGE (J1650 PER 10MG) SC SCH (08:29)
[2021-02-20] MEDS: GABAPENTIN 300 MG CAP PO SCH ×2 (08:30→20:33)
[2021-02-20] MEDS: allopurinoL 300 MG TAB PO SCH (08:30)
[2021-02-20] MEDS: HumaLOG INSULIN (NovoLOG) PER UNIT SC SCH ×4 (08:30→20:36)
[2021-02-20] MEDS: LEVEMIR (INSULIN DETEMIR) 1 UNITS/0.01ML SC SCH ×2 (08:30→20:35)
[2021-02-20] MEDS: SINEMET 25-100 MG TAB PO SCH ×2 (08:30→18:13)
[2021-02-20] MEDS: guaiFENesin ER 600 MG TAB PO SCH ×2 (08:30→20:34)
[2021-02-20] MEDS: OMEPRAZOLE 20 MG CAP PO SCH ×2 (08:31→20:34)
[2021-02-20] MEDS: PARoxetine 10MG TABLET PO SCH (08:31)
[2021-02-20] MEDS: METOPROLOL TART 25 MG TABLET PO SCH ×2 (08:31→20:34)
[2021-02-20] MEDS: predniSONE 20 MG TAB PO SCH (08:31)
--- NOTE | 2021-02-20 09:00 | CR ---
PULMONARY CONSULTATION DATE: 02/19/2021 REASON FOR CONSULTATION: Abnormal chest CT. HISTORY OF PRESENT ILLNESS: Mr. Magdi Kovacs is a 80-year-old male who initially presented to [facility] with worsening low back along with shortness of breath and nonproductive cough. On my interview today, the patient states the main reason he came in was due to his back pain. However, he states his back is feeling much better as he is currently sitting up in a chair. Based on the admission note, the patient also presented with shortness of breath and a change in his cough which he noted to me as being chronic. He states his shortness of breath has been worsening with exertion over the past year. The patient does have some inconsistencies with his history as given, and based on his prior diagnosis of Parkinson's disease, it is unclear how much dementia he may have which could influence the changes in his history. The patient described his cough as daily in the morning productive of dark sputum. He notes that he has a lot of postnasal drip from sinus issues which he has required surgery for in the past. He denies being on antibiotics recently or frequently for sinus infections. He does state that he has some blood in the cough which he feels may be coming from his postnasal drip. He reports these are just small specks of blood. He does feel that over the past couple of weeks he has had a harder time bringing up sputum and feels congested particularly on the left side after coughing. He does feel that the right side congestion clears with coughing. Additionally, he feels he has been more short of breath when up walking around. He denies any change in his functional status or ability to walk around his house and take care of himself. He denies noticing any swelling in his legs. No fevers or chills at home. No change in his weight that he is aware of. The patient was initially admitted to the hospital for acute exacerbation of COPD and started on IV steroids. He was also treated for acute exacerbation of heart failure and started on diuretics. Due to uncontrolled glucose levels, the patient was quickly tapered down to oral prednisone 40 mg daily. He was also taken off diuretics. CT scan of the chest was ordered due to his shortness of breath and noted to have worsening chronic lung field changes. Pulmonology was consulted for this reason. PAST MEDICAL HISTORY: 1. Diastolic CHF. 2. Type 2 diabetes. 3. COPD. 4. Depression/anxiety. 5. Hypertension. 6. Hyperlipidemia. 7. Coronary artery disease. 8. Stage 3 CKD. 9. Degenerative joint disease. 10. GERD. 11. Parkinson's disease. PAST SURGICAL HISTORY: 1. Lithotripsy. 2. CABG x5 over 10 years ago. 3. Repair of severed right thumb. 4. Deviated septum repair. SOCIAL HISTORY: Approximately 50 pack year smoke history, quit 15 years ago. 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 The patient lives at home with his . FAMILY MEDICAL HISTORY: Mother with CVA. Father with history of diabetes and COPD. REVIEW OF SYSTEMS: A 10 point review of system was complete and negative other than as stated in the HPI. ALLERGIES: CONTRAST DYE, UNKNOWN REACTION. HOME MEDICATIONS: 1. Albuterol sulfate two puffs inhaled q.4 hours as needed for shortness of breath. 2. Allopurinol 300 mg daily. 3. Aspirin 81 mg daily. 4. Atorvastatin 40 mg q.h.s. 5. Brimonidine tartrate one drop, each eye b.i.d. 6. Carbidopa/Levodopa one tab b.i.d. 7. Clopidogrel 75 mg q.h.s. 8. Vitamin B12 1000 mcg daily. 9. Desloratadine 5 mg daily. 10. Doxazosin 4 mg q.h.s. 11. Trelegy Ellipta one puff daily. 12. Furosemide 40 mg daily. 13. Gabapentin 300 mg b.i.d. 14. Levemir insulin 63 units SC q.a.m. 15. Levemir insulin 73 units SC q.h.s. 16. Humalog insulin SC with meals per sliding scale. 17. Lisinopril 10 mg q.p.m. 18. Metformin 500 mg b.i.d. 19. Metoprolol tartrate 25 mg b.i.d. 20. Nitroglycerine sublingual 0.4 mg p.r.n. for chest pain. 21. Omeprazole 20 mg b.i.d. 22. Paroxetine 10 mg daily. 23. Primidone 50 mg q.h.s. PHYSICAL EXAMINATION: VITAL SIGNS: Temperature 98.0 degrees Fahrenheit oral, heart rate 80, respiratory rate 18, blood pressure 147/56, satting 94% on room air. GENERAL: The patient is alert and comfortable, sitting up in a chair in no acute distress. HEENT: Normocephalic, atraumatic. Moist mucous membranes. Sclerae anicteric. LUNGS: Clear to auscultation bilaterally. No wheezing, rhonchi or rales. Equal air entry bilaterally. HEART: Regular rate and rhythm, normal S1 and S2. No murmurs appreciated. ABDOMEN: Soft, obese, nondistended, nontender, bowel sounds present. EXTREMITIES: There is trace edema bilaterally. Pulses 2+ in the dorsalis pedis and radial arteries bilaterally. No clubbing or cyanosis. NEURO: No focal deficits appreciated. SKIN: No rash appreciated. PSYCHIATRIC: Normal mood and affect. LABORATORY DATA: White blood cell count 14.2, hemoglobin 11.5, hematocrit 34.8, platelet count 136. Chemistries: Sodium 136, potassium 4.1, chloride 101, carbon dioxide 28, BUN 38, creatinine 1.38, glucose 379, calcium 8.8, magnesium 2.0. VBG from 02/18/2021 shows pH 7.414, pCO2 35.3, pO2 82.7, HCO3 22.1, total CO2 23.2, O2 saturation 95.4. IMAGING: CT of chest from this morning reviewed, shows apical emphysematous changes with some areas of atelectasis at the bases and bronchiectasis bilaterally, consistent with COPD and bronchiectasis. ASSESSMENT AND PLAN: A 80-year-old male who presented with shortness of breath, treated for COPD exacerbation and CHF exacerbation, now improved, found to have worsening chronic changes on CT, chest. 1. Progression of COPD with acute exacerbation. The patient continues on 40 mg prednisone daily. Likely this is improved as he is not wheezing today. I would not recommend increasing the dose at this point. He can complete a short course of steroids. He should continue on his home inhalers as well. The finding of bronchiectasis does raise the concern of some mucus retention which can host bacteria and lead to more of a chronic infection. I would recommend a sputum culture if he can cough up a sample. This could help direct some antibiotic treatment which can help with his shortness of breath. Otherwise, he appears to be doing well from a respiratory standpoint and is not requiring supplemental oxygen. I would recommend continuing to optimize medical therapy for his additional contributing factors such as his CHF. Echocardiogram was also done today and the report will be pending. Dr. Hodge; I saw the patient and participated in the kirkpatrick elements of the evaluation. The picture is one of exacerbation of COPD complected by bronchiectasis with resultant x-ray abnormalities. I agree with the treatment plan as outlined and if an infection is identified we can address treatment toward specific infectors. His imaging should be repeated once the inflammatory illness is passed. Mr. Kovacs has a remote history of sleep apnea and this may need to be revisited on an outpatient basis. MARYJANE
[2021-02-20 10:00] VITALS: BP 152/69
--- NOTE | 2021-02-20 11:14 | IPN ---
PROGRESS NOTE DATE: 02/20/2021 SUBJECTIVE: Magdi is seen [facility]. He feels less short of breath. He thinks he maybe getting ready for discharge. No orthopnea or PND. He has a consultation in his chart from a resident covering pulmonary service. He has bronchiectasis and COPD on his CT scan. He had an echocardiogram ordered; those results are pending. PHYSICAL EXAMINATION: VITALS: Afebrile, blood pressure 150/62, O2 saturation 94%. GENERAL: Alert, conversant, in no distress HEENT: No JVD. HEART: Regular rate and rhythm. LUNGS: Wheezes both bases. ABDOMEN: Soft, nontender. EXTREMITIES: Trace 1+ peripheral edema. LABORATORY DATA: White count 10.6, hemoglobin 11.5, platelets 139,000. Sodium 139, potassium 4.3, BUN 30, creatinine 1.0, glucose 288. IMAGING STUDIES: Echocardiogram is pending. IMPRESSION: 1. exacerbation COPD: Sputum culture has been ordered. Continue oral prednisone, inhaled bronchodilator. 2. Questionable diastolic CHF (suspect cor pulmonale): Echocardiogram is pending. Continue diuresis. 3. Metabolic encephalopathy: This has improved. 4. Diabetes: Hemoglobin A1C is 7.X showing adequate control of his blood sugar at home. 5. Parkinson's disease: Continue Sinemet and Primidone. 6. Coronary artery disease: Continue statin therapy, aspirin and beta-amelia therapy 7. Hypertension: Blood pressure is under good control, mildly elevated currently due to steroid therapy. 8. Stage 3 chronic kidney disease: Daily labs have been ordered. Anticipate discharge tomorrow. This was discussed on case rounds today. MARYJANE
--- NOTE | 2021-02-20 13:54 | IPN ---
PROGRESS NOTE DATE: 02/20/2021 SUBJECTIVE: Patient seen and examined this morning at bedside. He states his breathing feels normal at rest; however, he does note some shortness of breath if he gets up and walks around the [place]. He states he can walk around his room easily without any shortness of breath; however, if he walks down the hallway and back, he does have to stop due to his shortness of breath. He states that he is able to return to normal breathing very quickly after these episodes. He also notes some continued leg swelling. He states this seems to be worse, as he has been sitting up in a chair most of the day. OBJECTIVE: VITAL SIGNS: Temperature 96.6 degrees Fahrenheit temporal heart rate 73, respiratory rate 18, blood pressure 150/62, oxygen saturation 94% on room air. GENERAL: Patient appears comfortable, sitting up in a chair in no acute distress. HEENT: Normocephalic, atraumatic. Moist mucous membranes. Sclerae anicteric. LUNGS: Clear to auscultation bilaterally. No wheezing, rhonchi, or rales. Equal air entry bilaterally. HEART: Regular rate and rhythm. Normal s1, S2. No murmurs appreciated. ABDOMEN: Soft, obese, nondistended, nontender. Bowel sounds present. EXTREMITIES: There is 1+ pitting edema, bilateral lower extremities. Pulses are 2+ in dorsalis pedis and radial arteries bilaterally. No clubbing or cyanosis. LABORATORY DATA: White blood cells 10.6, hemoglobin 11.5, hematocrit 35.0, platelet count 139. Sodium 139, potassium 4.3, chloride 107, bicarbonate 26, BUN 30, creatinine 1.03, glucose 288, calcium 8.1, magnesium 1.8. Procalcitonin level pending. ASSESSMENT AND PLAN: This is a 80-year-old male with past medical history of diastolic heart failure, chronic obstructive pulmonary disease (COPD), type 2 diabetes, Parkinson's disease, coronary artery disease, hypertension, hyperlipidemia, stage III chronic kidney disease (CKD), and degenerative joint disease, who presented with 1 year of worsening shortness of breath with acute on chronic back pain, admitted for COPD exacerbation. Pulmonary service was consulted for abnormal lung CT. 1. COPD with bronchiectasis and acute exacerbation. Patient continues on prednisone 40 mg daily. His blood sugars remain poorly controlled, and the primary service is adjusting his medications for this. Again today he is not wheezing, so his exacerbation has likely been treated well. He is not currently on any antibiotics. He is on scheduled DuoNeb. A procalcitonin level was ordered yesterday and remains pending. Additionally, a sputum culture was ordered but has not yet been collected. I have asked the nurse to put a sputum culture cup at bedside to assist with this. Otherwise, I would recommend continuing to optimize his other conditions\ which can contribute to his breathing. He did have some diuresis on admission, but this was held due to a rise in his creatinine. At this point, his creatinine has come back down, and he has some persistent leg swelling. Primary team can determine whether he would benefit from further diuresis. 2. Diastolic heart failure. Echocardiogram report pending. He does not seem to be overly decompensated but may require further diuresis. Dr. Hodge; I saw the patient with the resident and participated in the kirkpatrick elements of the evaluation. He does appear to be responding to the current treatment regime. On review of records there is a history of RED and the patient indicates he does still have equipment. I have encouraged him to resume CPAP use as improved sleep will speed his recovery. Imaging findings warrant follow up but as they are likely effected by his acute illness this would be best done after the acute illness has resolved. MARYJANE
[2021-02-20 14:00] VITALS: BP 153/68
[2021-02-20 18:00] VITALS: BP 179/75
[2021-02-20] MEDS: ASPIRIN 81MG ENTERIC TABLET PO SCH (18:13)
[2021-02-20] MEDS: DOXAZOSIN MESYLATE 4 MG TAB PO SCH (18:14)
[2021-02-20] MEDS: CLOPIDOGREL 75 MG TAB PO SCH (20:33)
[2021-02-20] MEDS: PRIMIDONE 50 MG TAB PO SCH (20:34)
[2021-02-20] MEDS: ATORVASTATIN 20 MG TAB PO SCH (20:34)
[2021-02-20 22:00] VITALS: BP 149/65
[2021-02-21] MEDS: IPRATROPIUM 0.5MG/ALBUTEROL 2.5MG INH SOL UD 3ML (DUONEB) NEB SCH ×2 (01:15→07:04)
[2021-02-21 02:00] VITALS: BP 152/66
[2021-02-21 06:00] VITALS: BP 157/70
[2021-02-21 06:41] LABS: BASO % 0.3 % (0.0-1.0); EOS # 0.1 10^3/uL (0.0-0.5); EOS % 0.7 % (0.0-3.0); HEMATOCRIT 37.6 % (42.0-52.0); HEMOGLOBIN 12.4 g/dl (13.5-17.5); LYMPH # 1.4 10^3/uL (1.5-5.0); LYMPH % 13.4 % (24.0-44.0); MEAN CORPUSCULAR HEMOGLOBIN 29.8 pg (27.0-33.0); MEAN CORPUSCULAR VOLUME 90.4 fl (80.0-96.0); MONO # 0.7 10^3/uL (0.0-0.8); MONO % 6.9 % (2.0-8.0); NEUTROPHILS # 8.2 10^3/uL (1.5-8.5); NEUTROPHILS % 76.5 % (36.0-66.0); PLATELET COUNT, AUTOMATED 159 10^3/uL (150-450); RED BLOOD COUNT 4.16 10^6/uL (4.30-6.10); WHITE BLOOD COUNT 10.7 10^3/uL (4.0-10.0)
[2021-02-21 07:04] LABS: BLOOD UREA NITROGEN 25 MG/DL (7-18); CARBON DIOXIDE LEVEL 28 MEQ/L (21-32); CHLORIDE LEVEL 106 MEQ/L (98-107); CREATININE FOR GFR 0.89 MG/DL (0.70-1.30); GLOMERULAR FILTRATION RATE > 60.0 (>42); GLUCOSE, FASTING 232 MG/DL (70-100); MAGNESIUM LEVEL 1.8 MG/DL (1.8-2.4); POTASSIUM SERUM 4.9 MEQ/L (3.5-5.1); SODIUM LEVEL 139 MEQ/L (136-145)
[2021-02-21] MEDS: BUDESONIDE 0.5 MG/2 ML INHALATION SUSPENSION INH SCH (07:04)
[2021-02-21] MEDS: ENOXAPARIN 40MG/0.4ML SYRINGE (J1650 PER 10MG) SC SCH (09:27)
[2021-02-21] MEDS: guaiFENesin ER 600 MG TAB PO SCH (09:27)
[2021-02-21] MEDS: OMEPRAZOLE 20 MG CAP PO SCH (09:27)
[2021-02-21] MEDS: predniSONE 20 MG TAB PO SCH (09:28)
[2021-02-21] MEDS: allopurinoL 300 MG TAB PO SCH (09:28)
[2021-02-21 09:31] VITALS: BP 147/58
[2021-02-21] MEDS: PARoxetine 10MG TABLET PO SCH (09:31)
[2021-02-21] MEDS: METOPROLOL TART 25 MG TABLET PO SCH (09:31)
[2021-02-21] MEDS: SINEMET 25-100 MG TAB PO SCH (09:31)
[2021-02-21] MEDS: GABAPENTIN 300 MG CAP PO SCH (09:31)
[2021-02-21] MEDS: LEVEMIR (INSULIN DETEMIR) 1 UNITS/0.01ML SC SCH (09:32)
[2021-02-21] MEDS: HumaLOG INSULIN (NovoLOG) PER UNIT SC SCH (09:32)
[2021-02-21] MEDS: BRIMONIDINE 0.15% OPHTH SOLN 5 ML OU SCH (09:33)
[2021-02-21 10:00] VITALS: BP 146/68
--- NOTE | 2021-02-21 11:33 | DSES ---
DISCHARGE SUMMARY DATE OF ADMISSION: 02/18/2021 DATE OF DISCHARGE: 02/21/2021 PRINCIPAL DIAGNOSIS: COPD exacerbation secondary to probable viral upper respiratory infection. SECONDARY DIAGNOSES: 1. Suspected cor pulmonale (echocardiogram report not available at time of discharge). 2. Metabolic encephalopathy, resolved. 3. Diabetes, type 2. 4. Parkinson's disease. 5. Coronary artery disease, stable. 6. Hypertensive heart disease. 7. Stage 3 chronic kidney disease. HISTORY: Magdi Kovacs was admitted for shortness of breath. I assumed his care the day before discharge. He has been treated for exacerbation of COPD with steroids and nebulized bronchodilator. Sputum culture was done and showed oropharyngeal contamination. Echocardiogram was ordered. He has edema and suspected cor pulmonale. Unfortunately, echocardiogram report as not available at the time of discharge. The rest of his medical problems were stable during the hospitalization. He was seen by pulmonary consultation who felt his COPD was stable. He did have a CT of the chest done during this admission which showed bronchiectasis as well as worsening chronic lung changes. LABORATORY DATA: Significant labs: Today white count is 10.7, hemoglobin 12.4, platelets 159. Sodium 130, potassium 4.9, BUN 25, creatinine 0.8, glucose 200. Hemoglobin A1c was 7.5% showing fairly good control of his diabetes. Procalcitonin was 0.19. Sputum was contaminated. DISPOSITION: He is discharged home in improved and stable condition. He received Depo-Medrol 80 mg IM before discharge and will provide him with an approximately seven day taper of steroids. He will follow up with Dr. Tran, his primary provider, in a week. His activity is as tolerated. He has been put on a 2 gram sodium diet with 1800 mL per day fluid restriction. MEDICATIONS: His medicines at home will continue to be: 1. Albuterol two puffs q.4 hours p.r.n. 2. Allopurinol 300 mg daily. 3. Aspirin 81 mg daily. 4. Atorvastatin 40 mg daily. 5. Sinemet 25-100 one tablet b.i.d. 6. Plavix 75 mg daily. 7. B12 1,000 mcg daily. 8. Desloratadine 5 mg daily. 9. Doxazosin 4 mg at bedtime. 10. Trelegy Ellipta 100-62-25 one inhalation daily. 11. Furosemide 40 mg daily. 12. Gabapentin 300 mg daily. 13. Levemir 63 units in the morning and 73 units in the evening. 14. Sliding scale insulin as before. 15. Lisinopril 10 mg daily. 16. Metformin 500 mg b.i.d. 17. Metoprolol 25 mg b.i.d. 18. Omeprazole 20 mg daily. 19. Paroxetine 10 mg daily. 20. Primidone 50 mg at bedtime. 21. Nitrostat p.r.n. With his history of coronary artery disease and congestive heart failure, considerations will be given to starting SGLT2 inhibitor such as empagliflozin but will defer that to his outpatient provider. At the time of this dictation, the only pending lab is the echocardiogram.
[2021-02-21] MEDS ORDERED: methylPREDNISolone 80MG/ML SUSP 1ML VIAL (J1040) IM ONE (13:00)
--- NOTE | 2021-02-21 16:01 | ECHO ---
ECHOCARDIOGRAM DATE OF PROCEDURE: 02/21/2021 Age: 81 Gender: M Height: 173 cm Weight: 117 kg REFERRING PHYSICIAN: Ninfa Lowery, nurse practitioner INDICATION: Heart failure 2D Measurements: Left ventricle in diastole: 5.8 cm Interventricular septum: 1.3 cm Posterior wall: 1.23 cm Left atrium: 4.7 cm Left atrial volume index: 37 Aortic root: 4.3 cm Aortic annulus: 2.4 cm Proximal ascending aorta: 3.7 cm Inferior vena cava: 1.7 cm (more than 50% respiratory variation) Doppler Measurements: Trace aortic regurgitation No aortic stenosis Aortic valve velocity: 132 cm/s LVOT velocity: 85.5 cm/s Trace mitral regurgitation Mitral E velocity: 101 cm/s Mitral A velocity: 102 cm/s Mitral deceleration time: 180 ms No tricuspid regurgitation No pulmonic regurgitation Pulmonary acceleration time: 140 ms (suggestive of normal pulmonary artery (PA) systolic pressure) MITRAL ANNULAR TISSUE DOPPLER E prime septal: 6.4 cm/s E prime lateral: 12.1 cm/s DESCRIPTION: Rhythm was sinus. Image quality was fair. Some premature ventricular contractions (PVCs) were observed. No pericardial effusion. This was a 2D, M-mode, color flow Doppler, and pulsed-wave Doppler examination, and mitral annular tissue Doppler. CONCLUSIONS: 1. Mild left ventricular (LV) dilatation with mild mixed eccentric/concentric left ventricular hypertrophy. Normal regional left ventricular (LV) wall motion and wall thickening. Normal left ventricular (LV) systolic function. Left ventricular ejection fraction (LVEF) 60% by visual estimate. Grade 1 left ventricular (LV) diastolic dysfunction (impaired relaxation filling pattern). 2. Moderate left atrial dilatation by left atrial volume index. 3. Mild dilatation of the aortic root at the level of the sinus of Valsalva. 4. Mild aortic valve sclerosis of a 3-cuspid aortic valve. Trace aortic regurgitation. 5. Mild mitral annular calcification. Trace mitral regurgitation. 6. Normal right ventricle size and systolic function. Suggestive of normal pulmonary artery (PA) systolic pressure. Suggestive of normal central venous pressure (CVP). 7. No pericardial effusion.
== END 2021-02-21 12:30 | disposition home health service (06) | DRG 140 ==
LOC: M ED 19:27 → M ED INP 19:28 → ENRESERV 23:40 → M MSPAV 02-18 00:10 → OBSVTOIN 02-18 18:06
PROVIDERS: ADMIT Internal Medicine; ATTEND Family Medicine
DX: J44.1 Chronic obstructive pulmonary disease with (acute) exacerbation (principal); G93.41 Metabolic encephalopathy; I50.33 Acute on chronic diastolic (congestive) heart failure; I27.81 Cor pulmonale (chronic); E11.22 Type 2 diabetes mellitus with diabetic chronic kidney disease; G20 Parkinson's disease; E83.42 Hypomagnesemia; I13.0 Hypertensive heart and chronic kidney disease with heart failure and stage 1 through stage 4 chronic kidney disease, or unspecified chronic kidney disease; N18.30 Chronic kidney disease, stage 3 unspecified; G47.33 Obstructive sleep apnea (adult) (pediatric); F32.9 Major depressive disorder, single episode, unspecified; F41.9 Anxiety disorder, unspecified; E78.5 Hyperlipidemia, unspecified; I25.10 Atherosclerotic heart disease of native coronary artery without angina pectoris; K21.9 Gastro-esophageal reflux disease without esophagitis; M19.90 Unspecified osteoarthritis, unspecified site; Z87.442 Personal history of urinary calculi; Z95.1 Presence of aortocoronary bypass graft; Z87.891 Personal history of nicotine dependence; Z20.822 Contact with and (suspected) exposure to COVID-19; Z79.82 Long term (current) use of aspirin; Z79.4 Long term (current) use of insulin; Z79.02 Long term (current) use of antithrombotics/antiplatelets; Z79.899 Other long term (current) drug therapy; Z91.041 Radiographic dye allergy status

== ENCOUNTER → 2021-03-20 | Outpatient (CLI) | payer BC ==
[~2021-03-20] MED LIST changes: +FURO40TA2 PO
--- NOTE | 2021-03-20 11:54 | REP ---
INDICATION: TIA COMPARISON: None. TECHNIQUE: Real-time ultrasound evaluation and duplex Doppler interrogation of the extracranial carotid vasculature is performed. FINDINGS: There is mild plaquing and narrowing in both carotid bulbs extending into the internal and external carotid arteries. Luminal narrowing is less than 50%. There is no evidence of hemodynamically significant stenosis of either internal carotid artery. Normal flow velocities are seen. The right vertebral artery could not be visualized. Left vertebral artery demonstrates normal direction of flow. RIGHT LEFT Peak systolic velocity ICA 68.1 cm/s 45.4 cm/s End diastolic velocity ICA 16.7 cm/s 15.1 cm/s Peak systolic velocity CCA 81.2 cm/s 76.8cm/s Peak systolic velocity ECA 88.8 cm/s 43.4 cm/s ICA/CCA ratio 0.84 0.59 IMPRESSION: Bilateral luminal narrowing of the internal carotid arteries less than 50%. No evidence of hemodynamically significant stenosis. <Electronically signed by Mayank Capps > 03/20/21 1017
== END ==
LOC: M RAD 10:15
PROVIDERS: ATTEND Internal Medicine
DX: I65.23 Occlusion and stenosis of bilateral carotid arteries (principal)

== ENCOUNTER 2022-08-01 10:55 | Inpatient (IN) | payer BC ==
[~2022-08-01] VITALS: Ht 172.7 cm; Wt 112.1 kg
[~2022-08-01 10:55] MED LIST changes: -CLAR5TAB PO; +DESL5TAB28 PO; +DOXY-443 PO; -DOXY1CAP62 PO; -POTA10TA14 PO; +POTA1TAB24 PO
[2022-08-01 11:50] LABS: BASO % 0.2 % (0.0-1.0); EOS # 0.3 10^3/uL (0.0-0.5); EOS % 1.7 % (0.0-3.0); HEMATOCRIT 43.3 % (42.0-52.0); HEMOGLOBIN 14.1 g/dl (13.5-17.5); LYMPH % 6.5 % (24.0-44.0); MEAN CORPUSCULAR HEMOGLOBIN 29.7 pg (27.0-33.0); MEAN CORPUSCULAR HGB CONC 32.6 g/dl (32.0-36.5); MEAN CORPUSCULAR VOLUME 91.2 fl (80.0-96.0); MONO # 0.9 10^3/uL (0.0-0.8); MONO % 5.6 % (2.0-8.0); NEUTROPHILS # 13.3 10^3/uL (1.5-8.5); NEUTROPHILS % 84.7 % (36.0-66.0); PLATELET COUNT, AUTOMATED 132 10^3/uL (150-450); RED BLOOD COUNT 4.75 10^6/uL (4.30-6.10); WHITE BLOOD COUNT 15.6 10^3/uL (4.0-10.0)
[2022-08-01 12:10] LABS: INR 1.15
[2022-08-01 12:16] LABS: BILIRUBIN,DIRECT 0.2 MG/DL (<0.4)
[2022-08-01 12:21] LABS: ALBUMIN 2.9 G/DL (3.2-5.2); ALKALINE PHOSPHATASE 82 U/L (46-116); ALT/SGPT 10 U/L (7.0-40); AST/SGOT 45 U/L (<34); BILIRUBIN,TOTAL 0.6 MG/DL (0.3-1.2); BLOOD UREA NITROGEN 32 MG/DL (9-23); CALCIUM LEVEL 8.8 MG/DL (8.3-10.6); CARBON DIOXIDE LEVEL 22 MMOL/L (20-31); CHLORIDE LEVEL 107 MMOL/L (98-107); CK-MB VALUE MASS 1.9 NG/ML (<3.6); CPK CREATINE PHOSPHOKINASE 166 U/L (46-171); CREATININE FOR GFR 1.16 MG/DL (0.70-1.30); GLOMERULAR FILTRATION RATE > 60.0 (>35); GLUCOSE, FASTING 107 MG/DL (74-106); LIPASE 28 U/L (12-53); MB/CK RELATIVE INDEX 1.14 (< OR =4); POTASSIUM SERUM 5.2 MMOL/L (3.5-5.1); SODIUM LEVEL 139 MMOL/L (136-145); TOTAL PROTEIN 6.2 G/DL (5.7-8.2)
[2022-08-01 12:25] LABS: RSV AMPLIFICATION NEGATIVE (NEGATIVE)
[2022-08-01] MEDS ORDERED: cefTRIAXone SOD 2 GM in D5W MINI-BAG PLUS 50 ML IV ONE (14:00)
[2022-08-01] MEDS ORDERED: HEPARIN SOD (PORCINE) 5000UNITS/ML 1ML VIAL/SYRINGE SC SCH (14:40)
[2022-08-01] MEDS ORDERED: ACETAMINOPHEN TAB 650MG DOSE (2X325MG) PO PRN (14:40)
[2022-08-01] MEDS ORDERED: AZITHROMYCIN 250MG TABLET PO SCH (14:40)
[2022-08-01] MEDS ORDERED: ALBUTEROL SULFATE 2.5 MG/0.5 ML INH NEB SOLN NEB PRN (14:40)
[2022-08-01] MEDS ORDERED: GLUCOSE 4GM CHEW TABLET PO PRN (14:45)
[2022-08-01] MEDS ORDERED: GLUCAGON INJ 1MG VIAL SC PRN (14:45)
[2022-08-01] MEDS ORDERED: DEXTROSE 50% 50 ML SYRINGE IV PRN (14:45)
[2022-08-01] MEDS ORDERED: SOD POLYSTYRENE SULFONATE SUSP 15GM 60ML UD PO ONE (15:05)
[2022-08-01] MEDS ORDERED: ALLO300T2 PA (15:42)
[2022-08-01] MEDS ORDERED: B-121TAB3 PO (15:42)
[2022-08-01] MEDS ORDERED: DULO30CA9 PO (15:42)
[2022-08-01] MEDS ORDERED: VENTAER INH (15:42)
[2022-08-01] MEDS ORDERED: JARD1TAB PO (15:42)
[2022-08-01] MEDS ORDERED: TRES1INJ SC (15:42)
[2022-08-01] MEDS ORDERED: HOME MED LIST COMPLETE! XX SCH (15:45)
[2022-08-01] MEDS ORDERED: methylPREDNISolone 125MG 2ML VIAL IV PRN (16:35)
[2022-08-01] MEDS ORDERED: diphenhydrAMINE 50MG/ML VIAL IV PRN (16:35)
[2022-08-01] MEDS ORDERED: ISOVUE-370 76% 100ML VIAL As Ordered ONE (17:02)
[2022-08-01] MEDS ORDERED: methylPREDNISolone 40MG 1ML VIAL IV ONE (17:30)
[2022-08-01] MEDS: INSULIN LISPRO (NovoLOG) PER UNIT SC SCH ×2 (17:30→21:25)
[2022-08-01] MEDS ORDERED: NITROGLYCERIN 0.4MG SUBL TABLET SL PRN (18:00)
[2022-08-01 18:22] VITALS: BP 148/76
[2022-08-01 19:38] LABS: HEMATOCRIT 41.7 % (42.0-52.0); HEMOGLOBIN 13.4 g/dl (13.5-17.5)
[2022-08-01 20:00] VITALS: BP 126/56
[2022-08-01 20:00] LABS: CK-MB VALUE MASS 1.4 NG/ML (<3.6)
[2022-08-01] MEDS ORDERED: SYMBICORT 160/4.5MCG INHALER 6GM INH SCH (20:00)
[2022-08-01 20:02] LABS: MB/CK RELATIVE INDEX 1.09 (< OR =4)
[2022-08-01] MEDS ORDERED: ASPIRIN 81MG ENTERIC TABLET PO SCH (21:00)
[2022-08-01] MEDS: IPRATROPIUM 0.5MG/ALBUTEROL 2.5MG INH SOL UD 3ML (DUONEB) INH SCH (21:04)
[2022-08-01] MEDS: ADVAIR HFA 115/21MCG INHALER INH SCH (21:04)
[2022-08-01] MEDS: PIPERACILLIN/TAZOBACTAM SOD 3.375 GM in D5W MINI-BAG PLUS 50 ML IV SCH (21:25)
[2022-08-01] MEDS: BRIMONIDINE 0.15% OPHTH SOLN 5 ML OU SCH (21:25)
[2022-08-01] MEDS: METOPROLOL TART 25 MG TABLET PO SCH (21:26)
[2022-08-01] MEDS: ATORVASTATIN 20 MG TAB PO SCH (21:26)
[2022-08-01] MEDS: SINEMET 25-100 MG TAB PO SCH (21:26)
[2022-08-01] MEDS: DOXYCYCLINE HYCLATE 100MG TABLET PO SCH (21:26)
[2022-08-01] MEDS: DOXAZOSIN MESYLATE 4 MG TAB PO SCH (21:43)
[2022-08-02] VITALS (14 sets, daily range): BP systolic 126–152; BP diastolic 56–83; O2SAT 91–95
[2022-08-02 00:16] LABS: HEMATOCRIT 40.2 % (42.0-52.0); HEMOGLOBIN 13.1 g/dl (13.5-17.5)
[2022-08-02] MEDS: PIPERACILLIN/TAZOBACTAM SOD 3.375 GM in D5W MINI-BAG PLUS 50 ML IV SCH ×4 (01:25→21:35)
[2022-08-02] MEDS: IPRATROPIUM 0.5MG/ALBUTEROL 2.5MG INH SOL UD 3ML (DUONEB) INH SCH ×4 (04:11→20:00)
[2022-08-02 05:14] LABS: BASO % 0.1 % (0.0-1.0); EOS % 0.1 % (0.0-3.0); HEMATOCRIT 40.4 % (42.0-52.0); HEMOGLOBIN 13.2 g/dl (13.5-17.5); LYMPH # 0.4 10^3/uL (1.5-5.0); LYMPH % 5.3 % (24.0-44.0); MEAN CORPUSCULAR HEMOGLOBIN 29.6 pg (27.0-33.0); MEAN CORPUSCULAR HGB CONC 32.7 g/dl (32.0-36.5); MEAN CORPUSCULAR VOLUME 90.6 fl (80.0-96.0); MONO # 0.2 10^3/uL (0.0-0.8); NEUTROPHILS # 7.5 10^3/uL (1.5-8.5); NEUTROPHILS % 90.3 % (36.0-66.0); PLATELET COUNT, AUTOMATED 129 10^3/uL (150-450); RED BLOOD COUNT 4.46 10^6/uL (4.30-6.10); WHITE BLOOD COUNT 8.3 10^3/uL (4.0-10.0)
[2022-08-02 06:04] LABS: ALBUMIN 2.9 G/DL (3.2-5.2); ALKALINE PHOSPHATASE 92 U/L (46-116); ALT/SGPT 10 U/L (7.0-40); AST/SGOT 17 U/L (<34); BILIRUBIN,TOTAL 0.6 MG/DL (0.3-1.2); BLOOD UREA NITROGEN 33 MG/DL (9-23); CALCIUM LEVEL 9.1 MG/DL (8.3-10.6); CARBON DIOXIDE LEVEL 22 MMOL/L (20-31); CHLORIDE LEVEL 105 MMOL/L (98-107); CREATININE FOR GFR 1.23 MG/DL (0.70-1.30); GLOMERULAR FILTRATION RATE > 60.0 (>35); GLUCOSE, FASTING 286 MG/DL (74-106); POTASSIUM SERUM 4.4 MMOL/L (3.5-5.1); SODIUM LEVEL 139 MMOL/L (136-145); TOTAL PROTEIN 6.2 G/DL (5.7-8.2)
[2022-08-02] MEDS: ADVAIR HFA 115/21MCG INHALER INH SCH ×2 (07:16→21:11)
[2022-08-02] MEDS: INSULIN LISPRO (NovoLOG) PER UNIT SC SCH ×4 (07:30→21:00)
[2022-08-02] MEDS ORDERED: INSULIN LISPRO (NovoLOG) PER UNIT SC ONE (08:10)
[2022-08-02] MEDS: allopurinoL 300 MG TAB PO SCH (08:30)
[2022-08-02] MEDS: DULoxetine 30MG CAPSULE (CYMBALTA) PO SCH (08:31)
[2022-08-02] MEDS: PANTOPRAZOLE 40MG TAB (PROTONIX) PO SCH (08:31)
[2022-08-02] MEDS: METOPROLOL TART 25 MG TABLET PO SCH ×2 (08:31→21:25)
[2022-08-02] MEDS: DOXYCYCLINE HYCLATE 100MG TABLET PO SCH ×2 (08:31→21:25)
[2022-08-02] MEDS: CYANOCOBALAMIN 500 MCG TAB PO SCH (08:31)
[2022-08-02] MEDS: PARoxetine 10MG TABLET PO SCH (08:31)
[2022-08-02] MEDS: SINEMET 25-100 MG TAB PO SCH ×3 (08:31→21:25)
[2022-08-02] MEDS: BRIMONIDINE 0.15% OPHTH SOLN 5 ML OU SCH ×2 (08:32→21:24)
[2022-08-02] MEDS: LEVEMIR (INSULIN DETEMIR) 1 UNITS/0.01ML SC SCH ×2 (08:44→11:49)
[2022-08-02] MEDS: LORATADINE 5 MG HALF-TAB PO SCH (11:48)
[2022-08-02] MEDS ORDERED: VANCOMYCIN HCL 1,000 MG, VIAL MATE ADAPTER 1 EACH in NS 250 ML IV ONE ×2 (12:00→13:00)
[2022-08-02 12:57] LABS: HEMATOCRIT 39.2 % (42.0-52.0); HEMOGLOBIN 12.8 g/dl (13.5-17.5)
[2022-08-02] MEDS ORDERED: cefTRIAXone SOD 1 GM in D5W MINI-BAG PLUS 50 ML IV SCH (14:00)
[2022-08-02 18:29] LABS: HEMATOCRIT 39.4 % (42.0-52.0); HEMOGLOBIN 12.9 g/dl (13.5-17.5)
[2022-08-02] MEDS: DOXAZOSIN MESYLATE 4 MG TAB PO SCH (21:25)
[2022-08-02] MEDS: ATORVASTATIN 20 MG TAB PO SCH (21:25)
[2022-08-03] VITALS (10 sets, daily range): BP systolic 146–156; BP diastolic 65–90; O2SAT 91–94
[2022-08-03] MEDS ORDERED: VANCOMYCIN HCL 750 MG, VIAL MATE ADAPTER 1 EACH in NS 250 ML IV SCH ×3
[2022-08-03 00:17] LABS: HEMATOCRIT 36.8 % (42.0-52.0); HEMOGLOBIN 12.1 g/dl (13.5-17.5)
[2022-08-03] MEDS: IPRATROPIUM 0.5MG/ALBUTEROL 2.5MG INH SOL UD 3ML (DUONEB) INH SCH ×4 (02:00→19:41)
[2022-08-03] MEDS: PIPERACILLIN/TAZOBACTAM SOD 3.375 GM in D5W MINI-BAG PLUS 50 ML IV SCH ×4 (02:02→20:44)
[2022-08-03 06:00] LABS: BASO % 0.2 % (0.0-1.0); EOS # 0.1 10^3/uL (0.0-0.5); EOS % 1.2 % (0.0-3.0); HEMATOCRIT 37.4 % (42.0-52.0); HEMOGLOBIN 12.3 g/dl (13.5-17.5); LYMPH # 1.1 10^3/uL (1.5-5.0); LYMPH % 10.2 % (24.0-44.0); MEAN CORPUSCULAR HEMOGLOBIN 29.6 pg (27.0-33.0); MEAN CORPUSCULAR HGB CONC 32.9 g/dl (32.0-36.5); MEAN CORPUSCULAR VOLUME 89.9 fl (80.0-96.0); MONO # 0.8 10^3/uL (0.0-0.8); MONO % 7.2 % (2.0-8.0); NEUTROPHILS # 8.5 10^3/uL (1.5-8.5); NEUTROPHILS % 80.3 % (36.0-66.0); PLATELET COUNT, AUTOMATED 134 10^3/uL (150-450); RED BLOOD COUNT 4.16 10^6/uL (4.30-6.10); WHITE BLOOD COUNT 10.6 10^3/uL (4.0-10.0)
[2022-08-03 06:34] LABS: ALKALINE PHOSPHATASE 78 U/L (46-116); ALT/SGPT < 9 U/L (7.0-40); AST/SGOT 17 U/L (<34); BILIRUBIN,TOTAL 0.5 MG/DL (0.3-1.2); BLOOD UREA NITROGEN 29 MG/DL (9-23); CALCIUM LEVEL 9.2 MG/DL (8.3-10.6); CARBON DIOXIDE LEVEL 22 MMOL/L (20-31); CHLORIDE LEVEL 105 MMOL/L (98-107); CREATININE FOR GFR 1.07 MG/DL (0.70-1.30); GLOMERULAR FILTRATION RATE > 60.0 (>35); GLUCOSE, FASTING 215 MG/DL (74-106); POTASSIUM SERUM 3.9 MMOL/L (3.5-5.1); SODIUM LEVEL 137 MMOL/L (136-145); TOTAL PROTEIN 6.3 G/DL (5.7-8.2)
[2022-08-03] MEDS: ADVAIR HFA 115/21MCG INHALER INH SCH ×2 (07:19→19:41)
[2022-08-03] MEDS: allopurinoL 300 MG TAB PO SCH (08:17)
[2022-08-03] MEDS: INSULIN LISPRO (NovoLOG) PER UNIT SC SCH ×4 (08:17→20:45)
[2022-08-03] MEDS: LEVEMIR (INSULIN DETEMIR) 1 UNITS/0.01ML SC SCH (08:17)
[2022-08-03] MEDS: LORATADINE 5 MG HALF-TAB PO SCH (08:17)
[2022-08-03] MEDS: METOPROLOL TART 25 MG TABLET PO SCH ×2 (08:17→20:46)
[2022-08-03] MEDS: PANTOPRAZOLE 40MG TAB (PROTONIX) PO SCH (08:18)
[2022-08-03] MEDS: PARoxetine 10MG TABLET PO SCH (08:18)
[2022-08-03] MEDS: CYANOCOBALAMIN 500 MCG TAB PO SCH (08:18)
[2022-08-03] MEDS: DULoxetine 30MG CAPSULE (CYMBALTA) PO SCH (08:18)
[2022-08-03] MEDS: SINEMET 25-100 MG TAB PO SCH ×3 (08:18→17:36)
[2022-08-03] MEDS: DOXYCYCLINE HYCLATE 100MG TABLET PO SCH ×2 (08:18→20:45)
[2022-08-03] MEDS: BRIMONIDINE 0.15% OPHTH SOLN 5 ML OU SCH ×2 (08:19→20:46)
[2022-08-03] MEDS: MIRALAX *UNIT DOSE* 17GM PACKET PO PRN (17:37)
[2022-08-03] MEDS: ATORVASTATIN 20 MG TAB PO SCH (20:44)
[2022-08-03] MEDS: DOXAZOSIN MESYLATE 4 MG TAB PO SCH (20:46)
[2022-08-04] VITALS (7 sets, daily range): BP systolic 105–170; BP diastolic 51–88
[2022-08-04] MEDS: IPRATROPIUM 0.5MG/ALBUTEROL 2.5MG INH SOL UD 3ML (DUONEB) INH SCH ×4 (01:39→20:00)
[2022-08-04] MEDS: PIPERACILLIN/TAZOBACTAM SOD 3.375 GM in D5W MINI-BAG PLUS 50 ML IV SCH ×2 (02:40→09:13)
[2022-08-04] MEDS: SINEMET 25-100 MG TAB PO SCH ×3 (06:06→17:29)
[2022-08-04 06:43] LABS: BASO % 0.5 % (0.0-1.0); EOS # 0.3 10^3/uL (0.0-0.5); EOS % 3.5 % (0.0-3.0); HEMOGLOBIN 13.3 g/dl (13.5-17.5); LYMPH % 11.1 % (24.0-44.0); MEAN CORPUSCULAR HGB CONC 33.3 g/dl (32.0-36.5); MEAN CORPUSCULAR VOLUME 90.3 fl (80.0-96.0); MONO # 0.9 10^3/uL (0.0-0.8); MONO % 10.6 % (2.0-8.0); NEUTROPHILS # 6.4 10^3/uL (1.5-8.5); PLATELET COUNT, AUTOMATED 140 10^3/uL (150-450); RED BLOOD COUNT 4.43 10^6/uL (4.30-6.10); WHITE BLOOD COUNT 8.8 10^3/uL (4.0-10.0)
[2022-08-04] MEDS: ADVAIR HFA 115/21MCG INHALER INH SCH ×2 (07:17→20:12)
[2022-08-04 08:50] LABS: ALKALINE PHOSPHATASE 77 U/L (46-116); ALT/SGPT 10 U/L (7.0-40); AST/SGOT 21 U/L (<34); BILIRUBIN,TOTAL 0.6 MG/DL (0.3-1.2); BLOOD UREA NITROGEN 15 MG/DL (9-23); CALCIUM LEVEL 9.1 MG/DL (8.3-10.6); CARBON DIOXIDE LEVEL 20 MMOL/L (20-31); CHLORIDE LEVEL 106 MMOL/L (98-107); CREATININE FOR GFR 1.01 MG/DL (0.70-1.30); GLOMERULAR FILTRATION RATE > 60.0 (>35); GLUCOSE, FASTING 206 MG/DL (74-106); POTASSIUM SERUM 4.1 MMOL/L (3.5-5.1); SODIUM LEVEL 136 MMOL/L (136-145); TOTAL PROTEIN 6.3 G/DL (5.7-8.2)
[2022-08-04] MEDS: INSULIN LISPRO (NovoLOG) PER UNIT SC SCH ×4 (09:14→21:00)
[2022-08-04] MEDS: DOXYCYCLINE HYCLATE 100MG TABLET PO SCH ×2 (09:14→21:41)
[2022-08-04] MEDS: LORATADINE 5 MG HALF-TAB PO SCH (09:14)
[2022-08-04] MEDS: LEVEMIR (INSULIN DETEMIR) 1 UNITS/0.01ML SC SCH (09:14)
[2022-08-04] MEDS: DULoxetine 30MG CAPSULE (CYMBALTA) PO SCH (09:14)
[2022-08-04] MEDS: CYANOCOBALAMIN 500 MCG TAB PO SCH (09:14)
[2022-08-04] MEDS: allopurinoL 300 MG TAB PO SCH (09:14)
[2022-08-04] MEDS: BRIMONIDINE 0.15% OPHTH SOLN 5 ML OU SCH ×2 (09:15→21:42)
[2022-08-04] MEDS: PARoxetine 10MG TABLET PO SCH (09:15)
[2022-08-04] MEDS: METOPROLOL TART 25 MG TABLET PO SCH ×2 (09:15→21:42)
[2022-08-04] MEDS: PANTOPRAZOLE 40MG TAB (PROTONIX) PO SCH (09:15)
[2022-08-04] MEDS: SENOKOT S TAB PO PRN (09:19)
[2022-08-04 10:38] LABS: INR 1.17; PARTIAL THROMBOPLASTIN TIME 26.3 SECONDS (24.8-34.2); PROTHROMBIN TIME 15.1 SECONDS (12.5-14.5)
[2022-08-04] MEDS: AUGMENTIN 875 MG TAB PO SCH ×2 (10:45→21:41)
[2022-08-04] MEDS: FUROSEMIDE 40 MG TAB PO SCH (10:45)
[2022-08-04] MEDS: MOM 30ML SUSPENSION UDC PO PRN (17:29)
[2022-08-04] MEDS: ATORVASTATIN 20 MG TAB PO SCH (21:41)
[2022-08-04] MEDS: DOXAZOSIN MESYLATE 4 MG TAB PO SCH (21:42)
[2022-08-04] MEDS: OMEPRAZOLE 20MG CAP PO SCH (21:42)
[2022-08-05] VITALS (7 sets, daily range): BP systolic 130–184; BP diastolic 61–92
[2022-08-05] MEDS: IPRATROPIUM 0.5MG/ALBUTEROL 2.5MG INH SOL UD 3ML (DUONEB) INH SCH ×4 (02:25→20:00)
[2022-08-05 04:55] LABS: BASO % 0.5 % (0.0-1.0); EOS # 0.4 10^3/uL (0.0-0.5); EOS % 4.8 % (0.0-3.0); HEMATOCRIT 41.4 % (42.0-52.0); HEMOGLOBIN 13.5 g/dl (13.5-17.5); LYMPH # 0.9 10^3/uL (1.5-5.0); LYMPH % 11.8 % (24.0-44.0); MEAN CORPUSCULAR HEMOGLOBIN 29.4 pg (27.0-33.0); MEAN CORPUSCULAR HGB CONC 32.6 g/dl (32.0-36.5); MEAN CORPUSCULAR VOLUME 90.2 fl (80.0-96.0); MONO # 0.8 10^3/uL (0.0-0.8); MONO % 9.8 % (2.0-8.0); NEUTROPHILS # 5.7 10^3/uL (1.5-8.5); NEUTROPHILS % 71.2 % (36.0-66.0); PLATELET COUNT, AUTOMATED 137 10^3/uL (150-450); RED BLOOD COUNT 4.59 10^6/uL (4.30-6.10)
[2022-08-05] MEDS: ADVAIR HFA 115/21MCG INHALER INH SCH ×2 (06:09→20:13)
[2022-08-05] MEDS: SINEMET 25-100 MG TAB PO SCH ×3 (06:23→17:50)
[2022-08-05] MEDS: INSULIN LISPRO (NovoLOG) PER UNIT SC SCH ×4 (07:30→20:22)
[2022-08-05 08:14] LABS: ALBUMIN 2.9 G/DL (3.2-5.2); ALKALINE PHOSPHATASE 84 U/L (46-116); ALT/SGPT 14 U/L (7.0-40); AST/SGOT 31 U/L (<34); BILIRUBIN,TOTAL 0.6 MG/DL (0.3-1.2); BLOOD UREA NITROGEN 26 MG/DL (9-23); CALCIUM LEVEL 9.1 MG/DL (8.3-10.6); CARBON DIOXIDE LEVEL 24 MMOL/L (20-31); CHLORIDE LEVEL 104 MMOL/L (98-107); GLOMERULAR FILTRATION RATE > 60.0 (>35); GLUCOSE, FASTING 181 MG/DL (74-106); POTASSIUM SERUM 4.2 MMOL/L (3.5-5.1); SODIUM LEVEL 138 MMOL/L (136-145); TOTAL PROTEIN 6.1 G/DL (5.7-8.2)
[2022-08-05] MEDS: BRIMONIDINE 0.15% OPHTH SOLN 5 ML OU SCH ×2 (09:15→20:35)
[2022-08-05] MEDS ORDERED: CETACAINE SPRAY 5GM As Ordered ONE (11:31)
[2022-08-05] MEDS ORDERED: THROMBIN 5,000 UNITS VIAL As Ordered ONE (11:31)
[2022-08-05] MEDS ORDERED: EPINEPHrine INJ 1 MG/ML 1ML AMP As Ordered ONE (11:31)
[2022-08-05] MEDS ORDERED: LIDOCAINE VISCOUS 2% SOLN 15ML UDC As Ordered ONE (11:59)
[2022-08-05] MEDS ORDERED: LIDOCAINE 1% SDV 30ML VIAL As Ordered ONE (11:59)
[2022-08-05] MEDS ORDERED: propofoL 200 MG/20 ML VIAL As Ordered ONE (12:05)
[2022-08-05] MEDS ORDERED: ROCURONIUM BROMIDE 50 MG/5 ML VIAL As Ordered ONE (12:05)
[2022-08-05] MEDS ORDERED: fentaNYL 100 MCG/2 ML INJECTION As Ordered ONE (12:05)
[2022-08-05] MEDS ORDERED: ONDANSETRON 4MG 2ML VIAL As Ordered ONE (12:05)
[2022-08-05] MEDS ORDERED: LIDOCAINE 2% 100MG/5ML SDV (FOR ANES.) As Ordered ONE (12:05)
[2022-08-05] MEDS ORDERED: METOCLOPRAMIDE INJ 10MG/2ML VIAL As Ordered ONE (12:05)
[2022-08-05] MEDS ORDERED: ePHEDrine SULFATE 25 MG/5 ML(5MG/ML) SYRINGE As Ordered ONE (12:05)
[2022-08-05] MEDS ORDERED: SUGAMMADEX SODIUM 500 MG/5 ML VIAL (BRIDION) As Ordered ONE (12:06)
[2022-08-05] MEDS ORDERED: ALBUTEROL SULFATE 2.5 MG/0.5 ML INH NEB SOLN INH ONE (12:30)
[2022-08-05] MEDS ORDERED: fentaNYL 100 MCG/2 ML INJECTION IV PRN (12:30)
[2022-08-05] MEDS ORDERED: ONDANSETRON 4MG 2ML VIAL IV PRN (12:30)
[2022-08-05] MEDS ORDERED: oxyCODONE 5MG TAB PO PRN (12:30)
[2022-08-05] MEDS ORDERED: LR 1,000 ML IV SCH (12:30)
[2022-08-05] MEDS: PARoxetine 10MG TABLET PO SCH (15:00)
[2022-08-05] MEDS: LORATADINE 5 MG HALF-TAB PO SCH (15:02)
[2022-08-05] MEDS: AUGMENTIN 875 MG TAB PO SCH ×2 (15:02→20:35)
[2022-08-05] MEDS: DOXYCYCLINE HYCLATE 100MG TABLET PO SCH ×2 (15:03→20:36)
[2022-08-05] MEDS: FUROSEMIDE 40 MG TAB PO SCH (15:04)
[2022-08-05] MEDS: METOPROLOL TART 25 MG TABLET PO SCH ×2 (15:05→20:36)
[2022-08-05] MEDS: OMEPRAZOLE 20MG CAP PO SCH ×2 (15:05→20:36)
[2022-08-05] MEDS: CYANOCOBALAMIN 500 MCG TAB PO SCH (15:06)
[2022-08-05] MEDS: DULoxetine 30MG CAPSULE (CYMBALTA) PO SCH (15:06)
[2022-08-05] MEDS: allopurinoL 300 MG TAB PO SCH (15:06)
[2022-08-05] MEDS: LEVEMIR (INSULIN DETEMIR) 1 UNITS/0.01ML SC SCH (15:08)
[2022-08-05] MEDS: MOM 30ML SUSPENSION UDC PO PRN (15:52)
[2022-08-05] MEDS: SENOKOT S TAB PO PRN (15:53)
[2022-08-05] MEDS: MIRALAX *UNIT DOSE* 17GM PACKET PO PRN (15:54)
[2022-08-05] MEDS: ATORVASTATIN 20 MG TAB PO SCH (20:35)
[2022-08-05] MEDS: DOXAZOSIN MESYLATE 4 MG TAB PO SCH (20:36)
[2022-08-06] VITALS: BP 138/70
[2022-08-06] MEDS: IPRATROPIUM 0.5MG/ALBUTEROL 2.5MG INH SOL UD 3ML (DUONEB) INH SCH ×2 (02:00→07:18)
[2022-08-06 04:09] VITALS: BP 118/70
[2022-08-06 05:35] LABS: BASO % 0.3 % (0.0-1.0); EOS # 0.1 10^3/uL (0.0-0.5); EOS % 0.7 % (0.0-3.0); HEMATOCRIT 43.3 % (42.0-52.0); HEMOGLOBIN 14.1 g/dl (13.5-17.5); LYMPH # 0.9 10^3/uL (1.5-5.0); LYMPH % 8.5 % (24.0-44.0); MEAN CORPUSCULAR HEMOGLOBIN 29.3 pg (27.0-33.0); MEAN CORPUSCULAR HGB CONC 32.6 g/dl (32.0-36.5); MONO # 0.8 10^3/uL (0.0-0.8); MONO % 7.6 % (2.0-8.0); NEUTROPHILS # 8.5 10^3/uL (1.5-8.5); NEUTROPHILS % 81.1 % (36.0-66.0); PLATELET COUNT, AUTOMATED 171 10^3/uL (150-450); RED BLOOD COUNT 4.81 10^6/uL (4.30-6.10); WHITE BLOOD COUNT 10.5 10^3/uL (4.0-10.0)
[2022-08-06 06:10] LABS: ALKALINE PHOSPHATASE 92 U/L (46-116); ALT/SGPT 23 U/L (7.0-40); AST/SGOT 22 U/L (<34); BILIRUBIN,TOTAL 0.7 MG/DL (0.3-1.2); BLOOD UREA NITROGEN 33 MG/DL (9-23); CALCIUM LEVEL 9.5 MG/DL (8.3-10.6); CARBON DIOXIDE LEVEL 24 MMOL/L (20-31); CHLORIDE LEVEL 99 MMOL/L (98-107); CREATININE FOR GFR 1.05 MG/DL (0.70-1.30); GLOMERULAR FILTRATION RATE > 60.0 (>35); GLUCOSE, FASTING 232 MG/DL (74-106); POTASSIUM SERUM 4.7 MMOL/L (3.5-5.1); SODIUM LEVEL 136 MMOL/L (136-145); TOTAL PROTEIN 6.5 G/DL (5.7-8.2)
[2022-08-06] MEDS: SINEMET 25-100 MG TAB PO SCH ×2 (06:29→12:28)
[2022-08-06] MEDS: ADVAIR HFA 115/21MCG INHALER INH SCH (07:18)
[2022-08-06 07:36] VITALS: BP 125/59
[2022-08-06] MEDS: INSULIN LISPRO (NovoLOG) PER UNIT SC SCH ×2 (07:58→13:27)
[2022-08-06] MEDS: BRIMONIDINE 0.15% OPHTH SOLN 5 ML OU SCH (09:22)
[2022-08-06 09:23] VITALS: BP 125/59
[2022-08-06] MEDS: LORATADINE 5 MG HALF-TAB PO SCH (09:23)
[2022-08-06] MEDS: LEVEMIR (INSULIN DETEMIR) 1 UNITS/0.01ML SC SCH (09:23)
[2022-08-06] MEDS: METOPROLOL TART 25 MG TABLET PO SCH (09:23)
[2022-08-06] MEDS: FUROSEMIDE 40 MG TAB PO SCH (09:24)
[2022-08-06] MEDS: DULoxetine 30MG CAPSULE (CYMBALTA) PO SCH (09:24)
[2022-08-06] MEDS: CYANOCOBALAMIN 500 MCG TAB PO SCH (09:24)
[2022-08-06] MEDS: OMEPRAZOLE 20MG CAP PO SCH (09:24)
[2022-08-06] MEDS: DOXYCYCLINE HYCLATE 100MG TABLET PO SCH (09:24)
[2022-08-06] MEDS: AUGMENTIN 875 MG TAB PO SCH (09:24)
[2022-08-06] MEDS: allopurinoL 300 MG TAB PO SCH (09:24)
[2022-08-06] MEDS: PARoxetine 10MG TABLET PO SCH (10:30)
[2022-08-06] MEDS ORDERED: AMOX875T2 PO ×2 (11:12→12:18)
[2022-08-06] MEDS ORDERED: LEVO1TAB40 PO (11:18)
[2022-08-06] MEDS ORDERED: DOXY-444 PO ×2 (11:43→12:18)
[2022-08-07 14:11] LABS: HISTOPLASMA GAL'MANNAN AG UR <0.5 (<0.5 ng/mL)
[2022-08-07 15:10] LABS: BODY FLUID CULTURE Not indicated. (.); LEGIONELLA ANTIGEN URINE Negative (Negative); ORGANISM ID Not indicated. (.); SPECIMEN SOURCE Urine (.); URINE STREP PNEUMONIAE ANTIGEN Negative (Negative)
[2022-08-08 14:08] LABS: ASPERGILLUS FLAVUS ABY Negative (Neg:<1:1); ASPERGILLUS FUMIGATUS ABY Negative (Neg:<1:1); ASPERGILLUS NIGER ABY Negative (Neg:<1:1); CRYPTOCOCCUS ANTIGEN SER Negative (Negative)
== END 2022-08-06 13:40 | disposition home or self-care (01) | DRG 121 ==
LOC: M ED 10:55 → M ED INP 15:05 → M PCU 18:11
PROVIDERS: ADMIT Internal Medicine; ATTEND Internal Medicine
PROC: 0BCD8ZZ Extirpation of Matter from Right Middle Lung Lobe, Via Natural or Artificial Opening Endoscopic (ICD-10-PCS; 2022-08-05)
PROC: 0BCJ8ZZ Extirpation of Matter from Left Lower Lung Lobe, Via Natural or Artificial Opening Endoscopic (ICD-10-PCS; 2022-08-05)
PROC: 0B9J8ZX Drainage of Left Lower Lung Lobe, Via Natural or Artificial Opening Endoscopic, Diagnostic (ICD-10-PCS; principal; 2022-08-05 11:30)
DX: J18.9 Pneumonia, unspecified organism (principal); I13.0 Hypertensive heart and chronic kidney disease with heart failure and stage 1 through stage 4 chronic kidney disease, or unspecified chronic kidney disease; I50.32 Chronic diastolic (congestive) heart failure; J44.0 Chronic obstructive pulmonary disease with (acute) lower respiratory infection; E11.22 Type 2 diabetes mellitus with diabetic chronic kidney disease; G20 Parkinson's disease; E87.5 Hyperkalemia; E11.51 Type 2 diabetes mellitus with diabetic peripheral angiopathy without gangrene; I27.81 Cor pulmonale (chronic); J44.1 Chronic obstructive pulmonary disease with (acute) exacerbation; I25.10 Atherosclerotic heart disease of native coronary artery without angina pectoris; J69.0 Pneumonitis due to inhalation of food and vomit; G47.33 Obstructive sleep apnea (adult) (pediatric); N18.9 Chronic kidney disease, unspecified; F32.A Depression, unspecified; F41.9 Anxiety disorder, unspecified; E78.5 Hyperlipidemia, unspecified; K59.00 Constipation, unspecified; J98.09 Other diseases of bronchus, not elsewhere classified; K21.9 Gastro-esophageal reflux disease without esophagitis; Z86.73 Personal history of transient ischemic attack (TIA), and cerebral infarction without residual deficits; Z95.1 Presence of aortocoronary bypass graft; Z87.442 Personal history of urinary calculi; Z98.62 Peripheral vascular angioplasty status; Z98.49 Cataract extraction status, unspecified eye; Z86.010 Personal history of colon polyps; Z79.82 Long term (current) use of aspirin; Z79.4 Long term (current) use of insulin; Z79.02 Long term (current) use of antithrombotics/antiplatelets; Z79.899 Other long term (current) drug therapy; Z91.041 Radiographic dye allergy status; Z87.891 Personal history of nicotine dependence

== ENCOUNTER → 2022-09-03 | Outpatient (CLI) | payer BC ==
[~2022-09-03] MED LIST changes: +ALLO300T2 PA; +AMOX875T2 PO; +B-121TAB3 PO; +DOXY-444 PO; +DULO30CA9 PO; +JARD1TAB PO; +LEVO1TAB40 PO; +TRES1INJ SC; +VENTAER INH
== END ==
LOC: M RAD 12:52
PROVIDERS: ATTEND Internal Medicine
DX: J18.9 Pneumonia, unspecified organism (principal)

== ENCOUNTER 2022-12-30 11:55 | Emergency (ER) | payer BC ==
[~2022-12-30] VITALS: Ht 172.7 cm; Wt 114.6 kg
[2022-12-30] MEDS ORDERED: GI COCKTAIL 50ML BTL(HYOSCYAMINE/MAALOX/LIDOCAINE VISCOUS)(1:3:1) PO ONE (12:10)
[2022-12-30 12:35] LABS: VENOUS BASE EXCESS -5.6 (-2.0-2.0); VENOUS HCO3 22.4 MMOL/L (23.0-27.0); VENOUS O2 SATURATION 56.9 % (60.0-80.0); VENOUS PARTIAL PRESSURE CO2 52.8 mmHg (38.0-50.0); VENOUS PARTIAL PRESSURE O2 34.4 mmHg (30.0-50.0); VENOUS PH 7.245 UNITS (7.330-7.430)
[2022-12-30 12:41] LABS: BASO % 0.2 % (0.0-1.0); EOS # 0.2 10^3/uL (0.0-0.5); EOS % 1.4 % (0.0-3.0); HEMATOCRIT 46.7 % (42.0-52.0); HEMOGLOBIN 15.1 g/dl (13.5-17.5); LYMPH # 1.1 10^3/uL (1.5-5.0); LYMPH % 9.8 % (24.0-44.0); MEAN CORPUSCULAR HEMOGLOBIN 29.4 pg (27.0-33.0); MEAN CORPUSCULAR HGB CONC 32.3 g/dl (32.0-36.5); MONO # 0.7 10^3/uL (0.0-0.8); NEUTROPHILS # 9.1 10^3/uL (1.5-8.5); NEUTROPHILS % 82.1 % (36.0-66.0); PLATELET COUNT, AUTOMATED 131 10^3/uL (150-450); RED BLOOD COUNT 5.13 10^6/uL (4.30-6.10)
[2022-12-30 13:03] LABS: INR 1.06
[2022-12-30 13:08] LABS: C REACTIVE PROTEIN QUANTITATIV < 0.40 MG/DL (<1.0); LIPASE 34 U/L (12-53)
[2022-12-30 13:10] LABS: ALKALINE PHOSPHATASE 71 U/L (46-116); ALT/SGPT 10 U/L (7.0-40); AST/SGOT 40 U/L (<34); BILIRUBIN,DIRECT 0.1 MG/DL (<0.4); BILIRUBIN,TOTAL 0.5 MG/DL (0.3-1.2); BLOOD UREA NITROGEN 29 MG/DL (9-23); CALCIUM LEVEL 9.3 MG/DL (8.3-10.6); CARBON DIOXIDE LEVEL 23 MMOL/L (20-31); CHLORIDE LEVEL 110 MMOL/L (98-107); CK-MB VALUE MASS 2.5 NG/ML (<3.6); CREATININE FOR GFR 1.33 MG/DL (0.70-1.30); GLOMERULAR FILTRATION RATE 55.1 (>35); GLUCOSE, FASTING 242 MG/DL (74-106); POTASSIUM SERUM 4.9 MMOL/L (3.5-5.1); SODIUM LEVEL 141 MMOL/L (136-145)
[2022-12-30 13:12] LABS: THYROID STIMULATING HORMONE 1.193 uIU/ML (0.55-4.78)
[2022-12-30 13:14] LABS: CPK CREATINE PHOSPHOKINASE 164 U/L (46-171); MB/CK RELATIVE INDEX 1.52 (< OR =4)
[2022-12-30 13:40] LABS: RSV AMPLIFICATION NEGATIVE (NEGATIVE)
[2022-12-30 13:55] LABS: ERYTHROCYTE SEDIMENTATION RATE 15 mm/hr (0-20)
[2022-12-30 13:59] LABS: CK-MB VALUE MASS 2.4 NG/ML (<3.6); MB/CK RELATIVE INDEX 1.39 (< OR =4)
[2022-12-30 16:07] LABS: CK-MB VALUE MASS 2.5 NG/ML (<3.6)
[2022-12-30 16:31] LABS: MB/CK RELATIVE INDEX 1.87 (< OR =4)
[2022-12-30 17:00] VITALS: BP 130/60
[2022-12-30] MEDS ORDERED: NEUR100C PO (17:00)
== END 2022-12-30 17:19 | disposition home or self-care (01) ==
LOC: M ED 11:55 → EDBD 11:55 → M ED 17:19
DX: R55 Syncope and collapse (principal); R07.9 Chest pain, unspecified; R00.1 Bradycardia, unspecified; I45.10 Unspecified right bundle-branch block; E11.9 Type 2 diabetes mellitus without complications; I51.7 Cardiomegaly; I50.9 Heart failure, unspecified; E78.5 Hyperlipidemia, unspecified; I25.10 Atherosclerotic heart disease of native coronary artery without angina pectoris; Z86.73 Personal history of transient ischemic attack (TIA), and cerebral infarction without residual deficits; G47.33 Obstructive sleep apnea (adult) (pediatric); J44.9 Chronic obstructive pulmonary disease, unspecified; Z95.5 Presence of coronary angioplasty implant and graft; Z90.49 Acquired absence of other specified parts of digestive tract; Z87.891 Personal history of nicotine dependence; Z91.041 Radiographic dye allergy status; Z79.51 Long term (current) use of inhaled steroids; Z79.4 Long term (current) use of insulin; Z79.84 Long term (current) use of oral hypoglycemic drugs; Z79.899 Other long term (current) drug therapy

== ENCOUNTER → 2023-07-07 | Outpatient (CLI) | payer BC ==
[~2023-07-07] MED LIST changes: +NEUR100C PO
== END ==
LOC: M SLEEP 20:00
PROVIDERS: ATTEND Internal Medicine Pulmonary Disease
DX: G47.33 Obstructive sleep apnea (adult) (pediatric) (principal)

== ENCOUNTER 2024-01-13 23:17 | Observation (INO) | payer BC, MEDICARE ==
[~2024-01-13] VITALS: Ht 172.7 cm; Wt 113.0 kg
[~2024-01-13 23:17] MED LIST changes: -ALLO300T2 PA; +ALLO300T2 PO; -ASPI-161 PO; +ASPI-615 PO; +DOXY-323 PO; +DOXY-440 PO; -DOXY-443 PO; -DOXY-444 PO
[2024-01-14 00:25] LABS: INR 1.11; PARTIAL THROMBOPLASTIN TIME 27.2 SECONDS (24.8-34.2)
[2024-01-14 00:27] LABS: HEMATOCRIT 41.2 % (42.0-52.0); HEMOGLOBIN 13.8 g/dl (13.5-17.5); MEAN CORPUSCULAR HEMOGLOBIN 30.5 pg (27.0-33.0); MEAN CORPUSCULAR HGB CONC 33.5 g/dl (32.0-36.5); MEAN CORPUSCULAR VOLUME 91.2 fl (80.0-96.0); PLATELET COUNT, AUTOMATED 153 10^3/uL (150-450); RED BLOOD COUNT 4.52 10^6/uL (4.30-6.10); WHITE BLOOD COUNT 6.3 10^3/uL (4.0-10.0)
[2024-01-14 00:36] LABS: ALBUMIN 3.4 G/DL (3.2-5.2); ALKALINE PHOSPHATASE 101 U/L (46-116); ALT/SGPT 16 U/L (7.0-40); AST/SGOT 31 U/L (<34); BILIRUBIN,TOTAL 0.3 MG/DL (0.3-1.2); BLOOD UREA NITROGEN 41 MG/DL (9-23); CALCIUM LEVEL 9.7 MG/DL (8.3-10.6); CARBON DIOXIDE LEVEL 24 MMOL/L (20-31); CHLORIDE LEVEL 108 MMOL/L (98-107); CHOLESTEROL LEVEL 123 MG/DL (<200); CHOLESTEROL RISK RATIO 5.82 (<5); CREATININE FOR GFR 1.26 MG/DL (0.70-1.30); GLOMERULAR FILTRATION RATE 58.5 (>35); GLUCOSE, FASTING 139 MG/DL (74-106); HDL CHOLESTEROL 21.1 MG/DL (>40); NON-HDL-C 101.9 MG/DL; POTASSIUM SERUM 4.5 MMOL/L (3.5-5.1); SODIUM LEVEL 140 MMOL/L (136-145); TOTAL PROTEIN 6.6 G/DL (5.7-8.2); TRIGLYCERIDES LEVEL 410 MG/DL (<150)
[2024-01-14] MEDS ORDERED: ISOVUE-370 76% 100ML VIAL As Ordered ONE (00:48)
[2024-01-14] MEDS: methylPREDNISolone 125MG 2ML VIAL IV ONE (00:59)
[2024-01-14] MEDS: FAMOTIDINE 20MG/2ML VIAL IVP ONE (00:59)
[2024-01-14] MEDS: diphenhydrAMINE 50MG/ML VIAL IV STA (00:59)
[2024-01-14] MEDS: ATORVASTATIN 20 MG TAB PO ONE (03:04)
[2024-01-14] MEDS: ASPIRIN 81MG CHEW TABLET PO ONE (03:04)
[2024-01-14] MEDS ORDERED: DEXTROSE 50% 50ML SYRINGE IV PRN (05:10)
[2024-01-14] MEDS ORDERED: GLUCOSE 4 GM CHEW PO PRN (05:10)
[2024-01-14] MEDS ORDERED: GLUCAGON INJ 1MG VIAL SC PRN (05:10)
[2024-01-14] MEDS ORDERED: GABA600T4 PO (05:16)
[2024-01-14] MEDS ORDERED: CLAR10TA2 PO (05:16)
[2024-01-14] MEDS ORDERED: B-122500 PO (05:16)
[2024-01-14] MEDS ORDERED: CARB1TAB97 PO (05:16)
[2024-01-14] MEDS ORDERED: MULT-40 PO (05:16)
[2024-01-14] MEDS ORDERED: TRUL0.5I SC (05:16)
[2024-01-14] MEDS ORDERED: HOME MED LIST COMPLETE! XX SCH (05:25)
[2024-01-14] MEDS ORDERED: ALBUTEROL 90 MCG/ACT 8GM HFA INHALER INH PRN (05:40)
[2024-01-14 05:45] VITALS: BP 169/85; TEMP 97.2; O2SAT 94
[2024-01-14] MEDS: INSULIN LISPRO (NovoLOG) PER UNIT SC SCH ×2 (09:02→20:22)
[2024-01-14] MEDS: GABAPENTIN 300 MG CAP PO SCH (10:41)
[2024-01-14] MEDS: PENTOXIFYLLINE 400MG TAB PO SCH (10:41)
[2024-01-14] MEDS: SINEMET 25-100 MG TAB PO SCH (10:42)
[2024-01-14] MEDS: allopurinoL 300 MG TAB PO SCH (10:42)
[2024-01-14] MEDS: PARoxetine 10MG TABLET PO SCH (10:42)
[2024-01-14] MEDS: OMEPRAZOLE 20MG CAP PO SCH (10:42)
[2024-01-14] MEDS: METOPROLOL TART 25 MG TABLET PO SCH (10:45)
[2024-01-14] MEDS: LORazepam 2 MG/ML 1ML VIAL IV PRN (11:41)
[2024-01-14 14:00] VITALS: BP 149/76; TEMP 97.2; O2SAT 94
[2024-01-14 20:00] VITALS: BP 147/68; TEMP 97.9; O2SAT 92
[2024-01-14] MEDS: CLOPIDOGREL 75 MG TAB PO SCH (20:13)
[2024-01-14] MEDS: DOXAZOSIN MESYLATE 4 MG TAB PO SCH (20:13)
[2024-01-14] MEDS: ASPIRIN 81MG ENTERIC TABLET PO SCH (20:13)
[2024-01-14] MEDS: ATORVASTATIN 20 MG TAB PO SCH (20:14)
[2024-01-14] MEDS: ACETAMINOPHEN TAB 650MG DOSE (2X325MG) PO PRN (20:15)
[2024-01-14] MEDS: HEPARIN SOD (PORCINE) 5000UNITS/ML 1ML VIAL/SYRINGE SQ SCH (20:48)
[2024-01-15 04:50] VITALS: BP 155/76; TEMP 97.5; O2SAT 96
[2024-01-15] MEDS: FUROSEMIDE 40 MG TAB PO SCH (08:11)
[2024-01-15 08:12] VITALS: BP 156/71
[2024-01-15] MEDS ORDERED: PILL CUTTER 1 EACH XX PRN (08:35)
[2024-01-15] MEDS: SINEMET 25-100 MG TAB PO SCH (09:29)
[2024-01-15] MEDS: QUEtiapine FUMARATE 12.5 MG HALF-TAB PO SCH (09:30)
[2024-01-15 10:00] LABS: APPEARANCE, URINE CLEAR (CLEAR); BACTERIA, URINE AUTO NEGATIVE (NEGATIVE); BILIRUBIN, URINE AUTO NEGATIVE (NEGATIVE); BLOOD, URINE BLOOD NEGATIVE (NEGATIVE); COLOR, URINE YELLOW (YELLOW); GLUCOSE, URINE (UA) AUTO 3+ mg/dL (NEGATIVE); KETONE, URINE AUTO NEGATIVE (NEGATIVE); LEUKOCYTE ESTERASE, URINE AUTO NEGATIVE (NEGATIVE); NITRITE, URINE AUTO NEGATIVE (NEGATIVE); PROTEIN, URINE AUTO NEGATIVE (NEGATIVE); RBC, URINE AUTO 0 /HPF (0-3); SPECIFIC GRAVITY URINE AUTO 1.017 (1.002-1.035); SQUAMOUS EPITHELIAL CELL UR AU 0 /HPF (0-6); UROBILINOGEN, URINE AUTO 0.2 mg/dL (0.0-2.0); WBC, URINE AUTO 0 /HPF (0-3)
[2024-01-15 14:00] VITALS: BP 140/57; TEMP 97.3; O2SAT 94
[2024-01-15] MEDS ORDERED: PENT400T47 PO (14:11)
[2024-01-15] MEDS ORDERED: GABA-1171 PO (14:11)
[2024-01-15] MEDS ORDERED: BAYE325T12 PO (14:13)
[2024-01-15] MEDS ORDERED: ASPI81TAEC PO (16:15)
[2024-01-15] MEDS ORDERED: GABA-282 PO (16:22)
[2024-01-15] MEDS ORDERED: GABAPENTIN 100 MG CAP PO SCH (21:00)
== END 2024-01-15 16:28 | disposition home health service (06) ==
LOC: M ED 23:17 → M ED INP 01-14 03:02 → M MSPAV 01-14 05:45
PROVIDERS: ADMIT Internal Medicine; ATTEND Internal Medicine
DX: R47.01 Aphasia (principal); I73.9 Peripheral vascular disease, unspecified; G93.41 Metabolic encephalopathy; H53.8 Other visual disturbances; R29.700 NIHSS score 0; R26.2 Difficulty in walking, not elsewhere classified; I11.0 Hypertensive heart disease with heart failure; E11.51 Type 2 diabetes mellitus with diabetic peripheral angiopathy without gangrene; G20.A2 Parkinson's disease without dyskinesia, with fluctuations; I25.10 Atherosclerotic heart disease of native coronary artery without angina pectoris; Z95.1 Presence of aortocoronary bypass graft; I50.32 Chronic diastolic (congestive) heart failure; G47.33 Obstructive sleep apnea (adult) (pediatric); J45.909 Unspecified asthma, uncomplicated; F39 Unspecified mood [affective] disorder; E78.1 Pure hyperglyceridemia; G62.9 Polyneuropathy, unspecified; K21.9 Gastro-esophageal reflux disease without esophagitis; G31.1 Senile degeneration of brain, not elsewhere classified; I67.82 Cerebral ischemia; Z87.891 Personal history of nicotine dependence; Z95.828 Presence of other vascular implants and grafts; Z86.73 Personal history of transient ischemic attack (TIA), and cerebral infarction without residual deficits; Z90.49 Acquired absence of other specified parts of digestive tract; Z95.818 Presence of other cardiac implants and grafts; Z87.442 Personal history of urinary calculi; Z83.6 Family history of other diseases of the respiratory system; Z82.3 Family history of stroke; Z91.041 Radiographic dye allergy status; Z79.899 Other long term (current) drug therapy; Z79.82 Long term (current) use of aspirin; Z79.02 Long term (current) use of antithrombotics/antiplatelets; Z79.51 Long term (current) use of inhaled steroids; Z79.84 Long term (current) use of oral hypoglycemic drugs; Z79.4 Long term (current) use of insulin
CPT/HCPCS: 70450; 70496; 70498; 70551; 76775; 80053; 80061; 81001; 85027; 85610; 85730; 93041; 93975; 94760; 96372; 96374; 96375; 99285; J1200; J1815; J2060; J2919; Q9967; S0028

== ENCOUNTER → 2024-07-09 | Outpatient (CLI) | payer BC ==
[~2024-07-09] MED LIST changes: +ASPI81TAEC PO; +B-122500 PO; +BAYE325T12 PO; +CARB1TAB97 PO; +CLAR10TA2 PO; -DOXY-323 PO; +DOXY-441 PO; +GABA-1171 PO; +GABA-1172 PO; +GABA-1490 PO; -GABA-282 PO; +MULT-40 PO; +PENT400T47 PO; +TRUL0.5I SC
== END ==
LOC: M SOG 11:07
PROVIDERS: ATTEND Orthopaedic Surgery
DX: M25.561 Pain in right knee (principal)

== ENCOUNTER 2025-04-20 07:21 | Day surgery (SDC) | payer BC ==
[~2025-04-20] VITALS: Ht 172.7 cm; Wt 104.3 kg
[~2025-04-20 07:21] MED LIST changes: -BAYE325T12 PO; +BAYE325T2 PO; +BRIM0.2S13 OU; -CLAR1CHW2 PO; -DESL5TAB28 PO; +DESL5TAB30 PO; +LORA5TAB15 PO; +METF-1113 PO; -METF-723 PO; +TAMS-18 PO; +TRAM50TA2 PO
[2025-04-20] MEDS ORDERED: LIDOCAINE 2% 100 MG/5 ML SDV (FOR ANES.) As Ordered ONE (08:41)
[2025-04-20 09:38] VITALS: TEMP 97.6
[2025-04-20 10:05] VITALS: BP 125/76; O2SAT 94
== END 2025-04-20 10:15 | disposition home or self-care (01) ==
LOC: M OPP 07:21
PROVIDERS: ATTEND Internal Medicine Gastroenterology
DX: D12.3 Benign neoplasm of transverse colon (principal); K57.30 Diverticulosis of large intestine without perforation or abscess without bleeding; K64.0 First degree hemorrhoids; D50.9 Iron deficiency anemia, unspecified; K44.9 Diaphragmatic hernia without obstruction or gangrene; K22.89 Other specified disease of esophagus; K31.819 Angiodysplasia of stomach and duodenum without bleeding; T18.2XXA Foreign body in stomach, initial encounter; Z86.73 Personal history of transient ischemic attack (TIA), and cerebral infarction without residual deficits; G47.30 Sleep apnea, unspecified; Z88.8 Allergy status to other drugs, medicaments and biological substances; Z91.041 Radiographic dye allergy status; Z79.82 Long term (current) use of aspirin; Z79.4 Long term (current) use of insulin; Z79.84 Long term (current) use of oral hypoglycemic drugs; Z79.891 Long term (current) use of opiate analgesic; Z79.85 Long-term (current) use of injectable non-insulin antidiabetic drugs; Z79.899 Other long term (current) drug therapy
CPT/HCPCS: 43239; 45381; 45385; 88305; J3010

== ENCOUNTER 2025-06-08 10:44 | Day surgery (SDC) | payer BC ==
[~2025-06-08] VITALS: Ht 172.7 cm; Wt 102.1 kg
[~2025-06-08 10:44] MED LIST changes: +ALIG10.5 PO; -METF-1113 PO; +METF-1201 PO
[2025-06-08] MEDS ORDERED: LIDOCAINE 2% 100 MG/5 ML SDV (FOR ANES.) As Ordered ONE (13:01)
[2025-06-08 13:50] VITALS: BP 199/82; O2SAT 99
== END 2025-06-08 13:56 | disposition home or self-care (01) ==
LOC: M OPP 10:44
PROVIDERS: ATTEND Internal Medicine Gastroenterology
DX: D12.6 Benign neoplasm of colon, unspecified (principal); K57.30 Diverticulosis of large intestine without perforation or abscess without bleeding; K64.0 First degree hemorrhoids; Z86.0100 Personal history of colon polyps, unspecified; Z86.73 Personal history of transient ischemic attack (TIA), and cerebral infarction without residual deficits; G47.30 Sleep apnea, unspecified; Z88.8 Allergy status to other drugs, medicaments and biological substances; Z91.041 Radiographic dye allergy status; Z79.82 Long term (current) use of aspirin; Z79.4 Long term (current) use of insulin; Z79.84 Long term (current) use of oral hypoglycemic drugs; Z79.51 Long term (current) use of inhaled steroids; Z79.891 Long term (current) use of opiate analgesic; Z79.85 Long-term (current) use of injectable non-insulin antidiabetic drugs; Z79.899 Other long term (current) drug therapy

== ENCOUNTER → 2025-08-02 | Outpatient (CLI) | payer BC | LOC: M PLAIMG 08:31 | PROVIDERS: ATTEND Physician Assistant | DX: I35.1 Nonrheumatic aortic (valve) insufficiency (principal); I34.0 Nonrheumatic mitral (valve) insufficiency; I77.810 Thoracic aortic ectasia ==

== ENCOUNTER 2025-08-09 09:00 | Outpatient (CLI) | payer BC ==
[~2025-08-09] VITALS: Ht 172.7 cm; Wt 105.9 kg
[~2025-08-09 09:00] MED LIST changes: +ALBUTEROL SULFATE 2.5 MG/0.5 ML INH CONCENTRATE NEB SOLN INH PRN; +EPINEPHrine INJ 1 MG/ML 1ML AMP IM PRN; +diphenhydrAMINE 50 MG/ML VIAL IV PRN
[2025-08-09 09:20] VITALS: BP 148/66; O2SAT 98
[2025-08-09] MEDS: IRON SUCROSE 500 MG in NS 250 ML IV ONE (10:06)
[2025-08-09 11:00] VITALS: BP 133/59; O2SAT 97
[2025-08-09 12:00] VITALS: BP 137/64; O2SAT 96
[2025-08-09 14:15] VITALS: BP 160/64; O2SAT 94
== END 2025-08-09 14:15 | disposition home or self-care (01) ==
LOC: M INFU 09:00
PROVIDERS: ATTEND Internal Medicine
DX: D50.9 Iron deficiency anemia, unspecified (principal); Z88.8 Allergy status to other drugs, medicaments and biological substances
CPT/HCPCS: 96365; 96366; J1756

== ENCOUNTER → 2025-08-29 | Outpatient (REF) | payer BC ==
[~2025-08-29] MED LIST changes: -ALBUTEROL SULFATE 2.5 MG/0.5 ML INH CONCENTRATE NEB SOLN INH PRN; -EPINEPHrine INJ 1 MG/ML 1ML AMP IM PRN; -diphenhydrAMINE 50 MG/ML VIAL IV PRN
[2025-08-29 15:06] LABS: IRON (FE) 52.0 UG/DL (65-175); PERCENT SATURATION 14.8 % (19.7-50.0)
== END ==
LOC: M LAB REF 14:23
PROVIDERS: ATTEND Internal Medicine
DX: D50.9 Iron deficiency anemia, unspecified (principal)